=== PATIENT | male | born 1945 | race Caucasian/White ===

== ENCOUNTER 2023-03-26 12:17 | Emergency (ER) | payer MEDICARE, OTHER, SELFPAY ==
[2023-03-26 12:20] VITALS: BP 152/91; PULSE 74; RESP 18; TEMP 37; O2SAT 100; BMI 27.2
--- NOTE | 2023-03-26 12:32 | DI.RAD.S_ITS ---
PROCEDURE: XR HAND LT MIN 3V INDICATIONS: animal bite/laceration TECHNIQUE: 3 views of the hand(s) acquired. COMPARISON: None. FINDINGS: Bones: There is a bone fragment seen adjacent to the 3rd metacarpal head, measuring 11 mm. Advanced degenerative changes are seen, particularly involving the 1st carpometacarpal joint. Gull wing type deformity can be seen involving the proximal interphalangeal joints. Soft tissues: Soft tissue swelling with soft tissue gas can be seen involving the distal palm. No radiopaque foreign bodies are seen. IMPRESSION: Soft tissue injury with laceration. No radiopaque foreign bodies are seen. There is an 11 mm bone fragment seen adjacent to the 3rd metacarpal head, within on clear donor site. This may be related to acute fracture. - If clinically appropriate, please consider a follow-up hand CT for further evaluation. Underlying degenerative changes are seen. 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 Dictated by: Calderon Yan M.D. on 03/26/2023 at 12:05 Approved by: Calderon Yan M.D. on 03/26/2023 at 12:08
[2023-03-26] MEDS: TET,DIPH,PERTUSS(ACELL),VAC/PF 0.5 ML SYRINGE IM (12:56)
[2023-03-26] MEDS: LIDOCAINE 1% (PF) 5 ML INJ (13:53)
--- NOTE | 2023-03-26 14:01 | ED_ITS ---
HPI - Animal Bite <Vania Arriola PA-C - Last Filed: 03/26/23 19:16> General Chief Complaint: Animal Bite Stated Complaint: Animal Bite Time Seen by Provider: 03/26/23 12:40 Source: patient Mode of arrival: Ambulatory History of Present Illness HPI narrative: 77-year-old male with no chronic medical problems here today for a dog bite on his left hand. Occurred 1 hour [employer]. Patient was on a walk with his dog and met up with a friend who also had a dog. The dog's got into an altercation and the patient reached in between them to try to break up the fight and got bit. The friend's dog is known to the patient and it is fully immunized. Patient is unsure of his last tetanus shot. He came straight here and has not irrigated the wound or taken any medications. He is able to move his hand and denies any numbness or tingling. Related Data Previous Rx's Medication Instructions Recorded amoxicillin 875 mg-potassium 1 tab PO BID 10 days #20 tabs 03/26/23 clavulanate 125 mg tablet Allergies Allergy/AdvReac Type Severity Reaction Status Date / Time No Known Drug Allergies Allergy Verified 03/26/23 12:20 Review of Systems <Vania Arriola PA-C - Last Filed: 03/26/23 19:16> Review of Systems ROS Unobtainable: All systems reviewed & are unremarkable except as noted in HPI and below Patient History <Vania Arriola PA-C - Last Filed: 03/26/23 19:16> Social History Smoking Status: Never smoker Smoking Status: Never smoker Substance Use Type: does not use Exam <Vania Arriola PA-C - Last Filed: 03/26/23 19:16> Narrative Exam Narrative: GENERAL: Well-developed, well-nourished, appears stated age. In no acute distress HEAD: Atraumatic. Normocephalic. EYES: Pupils equal round and reactive. Extraocular motions intact. No scleral icterus. No injection or drainage. ENT: Nose without bleeding, purulent drainage. Airway patent. NECK: Trachea midline. Non tender RESPIRATORY: Respiratory rate and effort normal EXTREMITIES: No edema or joint tenderness. NEURO: AOx3. SKIN/L HAND: Left hand with 3 cm deep laceration between the 3rd and 2nd metacarpals, dorsal surface. Two small puncture wounds noticed on the palmar surface with minimal bleeding. The 3 cm laceration is linear and does not appear to involve the tendons. Full range of motion of hand, able to make full fist, full range of motion of all digits including flexion, extension, abduction and adduction. Normal strength and resistance to tension of the digits. Normal sensation and vascular exam. Initial Vital Signs Initial Vital Signs: Vital Signs Temperature 98.6 F 03/26/23 12:20 Pulse Rate 74 03/26/23 12:20 Respiratory Rate 18 03/26/23 12:20 Blood Pressure 152/91 H 03/26/23 12:20 Pulse Oximetry 100 03/26/23 12:20 Oxygen Delivery Method Room Air 03/26/23 12:20 <Yvonne Vargas DO - Last Filed: 03/27/23 07:24> Initial Vital Signs Initial Vital Signs: Vital Signs Temperature 98.6 F 03/26/23 12:20 Pulse Rate 74 03/26/23 12:20 Respiratory Rate 18 03/26/23 12:20 Blood Pressure 152/91 H 03/26/23 12:20 Pulse Oximetry 100 03/26/23 12:20 Oxygen Delivery Method Room Air 03/26/23 12:20 Procedures <PARMJIT Cordero Last Filed: 03/26/23 19:16> Laceration Repair Laceration 1: Time of procedure: 14:00 Site: hand (Left) Side (If applicable): left Size (cm): 3 Depth: involves muscle layer Local Anesthetic: lidocaine 1% Amount of anesthesia used (mL): 3 Pre-repair: wound explored and irrigated extensively (Used chlorhexidine and 2 full bottles of saline) Skin layer closed with: nylon Skin layer suture size: 4-0 Number of sutures: 3 Technique: simple, interrupted (Closed loosely due to high-risk of infection (dog bite)) Course <Vania Arriola PA-C - Last Filed: 03/26/23 19:16> Orders Ordered: Discontinued Medications Amoxicillin/Clavulanate Potassium (Amoxicillin/Clav 875/125 Mg) 1 tab PO NOW ONE Stop: 03/26/23 14:30 Last Admin: 03/26/23 15:00 Dose: 1 tab Documented By: SABA Diphtheria/Tetanus/Acell Pertussis (Tet,Diph,Pertuss(Acell),Vac/Pf 0.5 Ml Syringe) 0.5 ml IM .ONCE ONE Stop: 03/26/23 12:33 Last Admin: 03/26/23 12:56 Dose: 0.5 ml Documented By: SABA Lidocaine HCl (Lidocaine 1% (Pf) 5 Ml) 5 ml INJ NOW ONE Stop: 03/26/23 13:41 Last Admin: 03/26/23 13:53 Dose: 5 ml Documented By: SABA Vital Signs Vital signs: Vital Signs - 8 hr 03/26/23 12:20 03/26/23 14:20 03/26/23 15:20 Temperature 98.6 F Pulse Rate 74 62 Pulse Rate [Left Radial] 70 Respiratory Rate 18 20 Blood Pressure 152/91 H 120/66 Pulse Oximetry 100 97 Oxygen Delivery Method Room Air Room Air <Yvonne Vargas DO - Last Filed: 03/27/23 07:24> Orders Ordered: Discontinued Medications Amoxicillin/Clavulanate Potassium (Amoxicillin/Clav 875/125 Mg) 1 tab PO NOW ONE Stop: 03/26/23 14:30 Last Admin: 03/26/23 15:00 Dose: 1 tab Documented By: SABA Diphtheria/Tetanus/Acell Pertussis (Tet,Diph,Pertuss(Acell),Vac/Pf 0.5 Ml Syringe) 0.5 ml IM .ONCE ONE Stop: 03/26/23 12:33 Last Admin: 03/26/23 12:56 Dose: 0.5 ml Documented By: SABA Lidocaine HCl (Lidocaine 1% (Pf) 5 Ml) 5 ml INJ NOW ONE Stop: 03/26/23 13:41 Last Admin: 03/26/23 13:53 Dose: 5 ml Documented By: SABA Vital Signs Vital signs: Vital Signs - 8 hr 03/26/23 12:20 03/26/23 14:20 03/26/23 15:20 Temperature 98.6 F Pulse Rate 74 62 Pulse Rate [Left Radial] 70 Respiratory Rate 18 20 Blood Pressure 152/91 H 120/66 Pulse Oximetry 100 97 Oxygen Delivery Method Room Air Room Air MDM - Animal Bite <Vania Arriola PA-C - Last Filed: 03/26/23 19:16> Imaging Data Extremity x-ray #1: Radiologist's Impression: [address] [address] XRay Report Signed Patient: eRyes Mcclure MR#: [id number] : 1945 Acct:[id number] Age/Sex: 77 / M Date of Service: 03/26/23 Loc: ED Accession Number: [id number] Procedure: XR hand LT min 3V Ordering Provider: Yvonne Vargas D.O. PROCEDURE: XR HAND LT MIN 3V INDICATIONS: animal bite/laceration TECHNIQUE: 3 views of the hand(s) acquired. COMPARISON: None. FINDINGS: Bones: There is a bone fragment seen adjacent to the 3rd metacarpal head, measuring 11 mm. Advanced degenerative changes are seen, particularly involving the 1st carpometacarpal joint. Gull wing type deformity can be seen involving the proximal interphalangeal joints. Soft tissues: Soft tissue swelling with soft tissue gas can be seen involving the distal palm. No radiopaque foreign bodies are seen. IMPRESSION: Soft tissue injury with laceration. No radiopaque foreign bodies are seen. There is an 11 mm bone fragment seen adjacent to the 3rd metacarpal head, within on clear donor site. This may be related to acute fracture. - If clinically appropriate, please consider a follow-up hand CT for further evaluation. Underlying degenerative changes are seen. 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 Dictated by: Calderon Yan M.D. on 03/26/2023 at 12:05 Approved by: Calderon Yan M.D. on 03/26/2023 at 12:08 [facility] Narrative Medical decision making narrative: Patient seen for a dog bite to his left hand. He sustained a 3 cm deep laceration between the 3rd and 2nd metacarpals. Patient has full range of motion of the entire hand and all digits with no evidence of tendon injury and normal sensation and vascular exam as well. Discussed with Dr. Vargas who recommended 2-3 loose sutures and Augmentin. On x-ray there was an 11 mm bone fragment adjacent to the 3rd metacarpal head so ortho Dr. Fox was consulted. His recommendation was that no splint necessary since it is simply a bony fragment and no ortho follow up needed. He recommended encouraging range of motion and applying a soft bandage and follow up with PCP. Patient was given 1 dose of Augmentin here in the ED and will take the remaining 10 days at home. Patient is ring was cut off the affected hand today. Tetanus shot was given today. Patient given strict return precautions for signs of infection. Consultations: Ortho- Dr. Fox - see above Findings and discharge diagnosis discussed with patient/family followed by verbalization of understanding Return precautions discussed with patient/family whom verbalize understanding of diagnosis and plan Discharge Plan Departure Patient Disposition: Home Clinical Impression: Dog bite Qualifiers: Encounter type: initial encounter Qualified Code(s): W54.0XXA - Bitten by dog, initial encounter Open avulsion fracture of shaft of metacarpal bone Qualifiers: Encounter type: initial encounter Qualified Code(s): S62.329B - Displaced fracture of shaft of unspecified metacarpal bone, initial encounter for open fracture Instructions: DI for Dog Bite Activity Restrictions/Additional Instructions: You were seen today for a dog bite on your left hand. You are being prescribed antibiotics to take for 10 days due to the high risk of infection with dog bites. Please take as directed for the full 10 days. You have 3 stitches in your hand. These will need to be removed in 10 days. In the meantime, please wash the wound with soap and water gently twice daily. Pat dry and then bandage as directed. Please monitor very closely for signs of infection which include significant redness around the wound, swelling, pain, yellow or green drainage or pus from the wound, inability to flex/move your hand or fingers, and/or fevers. If these occur please return to the emergency department immediately. Please follow up with her primary care provider within the next 3-5 days to check the wound. Thank you for choosing us to care for you today. Prescriptions: New amoxicillin-pot clavulanate 875-125 mg tablet 1 tab PO BID 10 Days Qty: 20 0RF Referrals: Miscellaneous,Doctor, [Primary Care Provider] - Rafia Gu PA-C [Non-Staff] - 3-5 days (Pt sustained dog bite to L hand with no e/o nerve or tendon injury. 11mm bony fragment seen on X-ray. Ortho advised follow up with PCP, no ortho f/u needed. ) Stand Alone Forms: Patient Portal/API ED Sign-out <Yvonne Vargas DO - Last Filed: 03/27/23 07:24> Cosign ED Attending Cosignature Attestation: I was available for consultation. Did not evaluate patient myself but consulted with Vania symptoms. Recommended loose closure copious irrigation and antibiotics. Ensured no tendon injury, per her exam. And orthopedics follow-up
[2023-03-26 14:20] VITALS: PULSE 70
[2023-03-26] MEDS: AMOXICILLIN/CLAV 875/125 MG 1 TAB PO (15:00)
[2023-03-26 15:20] VITALS: BP 120/66; PULSE 62; RESP 20; O2SAT 97
== END 2023-03-26 15:32 | disposition home or self-care (01) ==
PROVIDERS: Emergency Provider Physician Assistant
DX: S62.303A Unspecified fracture of third metacarpal bone, left hand, initial encounter for closed fracture (principal); S61.452A Open bite of left hand, initial encounter; W54.0XXA Bitten by dog, initial encounter; Z23 Encounter for immunization
CPT/HCPCS: 12042; 73130; 90471; 99283; 99284; 90715

== ENCOUNTER 2023-03-27 14:49 | Emergency (ER) | payer MEDICARE, OTHER, SELFPAY ==
[2023-03-27] VITALS (20 sets, daily range): BP systolic 101–159; BP diastolic 53–77; PULSE 61–90; RESP 18; TEMP 36.4; O2SAT 96–99; BMI 27.2
--- NOTE | 2023-03-27 16:22 | ED_ITS ---
HPI - Skin/Abscess/Foreign Bdy General Chief complaint: Skin/Abscess/Foreign Body Stated complaint: hand swelling, sutures yesterday animal bite Time Seen by Provider: 03/27/23 15:15 Source: patient Mode of arrival: Ambulatory Limitations: no limitations History of Present Illness HPI narrative: Patient healthy 77-year-old male presents today for wound re-evaluation. He was bit by a dog yesterday on his left hand. He had large laceration on the dorsal side it was loosely closed and irrigated thoroughly yesterday. He is taken 2 doses of Augmentin. Today he notes that it is more swollen. It is mildly eryth ematous but he does not have any fever or chills. No streaking. He has decreased range of motion in his fingers today due to swelling but yesterday he had intact neurologic and tendon exam. Related Data Previous Rx's Medication Instructions Recorded amoxicillin 875 mg-potassium 1 tab PO BID 10 days #20 tabs 03/26/23 clavulanate 125 mg tablet Allergies Allergy/AdvReac Type Severity Reaction Status Date / Time No Known Drug Allergies Allergy Verified 03/27/23 14:58 Patient History Social History Smoking Status: Never smoker Smoking Status: Never smoker Substance Use Type: does not use Exam Initial Vital Signs Initial Vital Signs: Vital Signs Temperature 97.6 F 03/27/23 14:51 Pulse Rate 82 03/27/23 14:51 Respiratory Rate 18 03/27/23 14:51 Blood Pressure 145/77 H 03/27/23 14:51 Pulse Oximetry 98 03/27/23 14:51 Oxygen Delivery Method Room Air 03/27/23 14:51 GENERAL: Alert pleasant 77-year-old male CARDIOVASCULAR: peripheral pulses in tact, cap refill <2 sec RESPIRATORY: No respiratory distress, speaks in full sentences without difficulty EXTREMITIES: Normal range of motion, no clubbing or edema. Neurovascularly intact Left hand swelling distal radial pulse intact decreased range of motion due to swelling NEUROLOGICAL: Cranial nerves II through XII grossly intact. Normal gait and speech. SKIN: left dorsal hand sutures in place there is some good space between them slight serosanguineous fluid drainage no copious amounts. There is swelling with minimal erythema. There is no streaking. Course Vital Signs Vital signs: Vital Signs - 8 hr 03/27/23 14:51 03/27/23 15:08 03/27/23 15:08 Temperature 97.6 F Pulse Rate 82 86 Respiratory Rate 18 Blood Pressure 145/77 H 144/61 H Pulse Oximetry 98 99 Oxygen Delivery Method Room Air 03/27/23 15:15 03/27/23 15:15 03/27/23 15:30 Temperature Pulse Rate 74 89 Respiratory Rate Blood Pressure 159/67 H Pulse Oximetry 98 96 Oxygen Delivery Method 03/27/23 15:32 03/27/23 15:32 03/27/23 15:33 Temperature Pulse Rate 88 77 Respiratory Rate Blood Pressure 107/59 L Pulse Oximetry 96 98 Oxygen Delivery Method 03/27/23 15:33 03/27/23 15:35 03/27/23 15:35 Temperature Pulse Rate 83 Respiratory Rate Blood Pressure 108/59 L 115/61 Pulse Oximetry 98 Oxygen Delivery Method 03/27/23 15:40 03/27/23 15:40 03/27/23 15:46 Temperature Pulse Rate 87 88 Respiratory Rate Blood Pressure 109/57 L Pulse Oximetry 97 97 Oxygen Delivery Method 03/27/23 15:46 03/27/23 15:50 03/27/23 15:50 Temperature Pulse Rate 87 Respiratory Rate Blood Pressure 101/68 106/60 Pulse Oximetry 98 Oxygen Delivery Method 03/27/23 15:55 03/27/23 15:55 03/27/23 15:59 Temperature Pulse Rate 74 61 Respiratory Rate Blood Pressure 103/57 L Pulse Oximetry 98 98 Oxygen Delivery Method 03/27/23 15:59 03/27/23 16:00 03/27/23 16:00 Temperature Pulse Rate 88 Respiratory Rate Blood Pressure 118/66 103/57 L Pulse Oximetry 98 Oxygen Delivery Method 03/27/23 16:05 03/27/23 16:05 03/27/23 16:10 Temperature Pulse Rate 88 88 Respiratory Rate Blood Pressure 118/57 L Pulse Oximetry 98 97 Oxygen Delivery Method 03/27/23 16:10 03/27/23 16:15 03/27/23 16:15 Temperature Pulse Rate 82 Respiratory Rate Blood Pressure 116/56 L 114/59 L Pulse Oximetry 97 Oxygen Delivery Method 03/27/23 16:20 03/27/23 16:20 03/27/23 16:25 Temperature Pulse Rate 90 88 Respiratory Rate Blood Pressure 114/64 Pulse Oximetry 97 98 Oxygen Delivery Method 03/27/23 16:25 03/27/23 16:30 02/18/24 16:30 Temperature Pulse Rate 88 Respiratory Rate Blood Pressure 125/64 102/53 L Pulse Oximetry 98 Oxygen Delivery Method 03/27/23 16:35 03/27/23 16:35 Temperature Pulse Rate 87 Respiratory Rate Blood Pressure 104/57 L Pulse Oximetry 99 Oxygen Delivery Method MDM - Skin/Abscess/Foreign Bdy MDM Narrative Medical decision making narrative: Patient well-appearing 77-year-old male presents today for wound recheck and evaluation. At this time he has afebrile no signs of obvious or worsening infection. He does have swelling which is to be expected. He has some drainage from the wound not purulent in nature. He has only had 2 doses of antibiotics. At this time encourage continue antibiotics elevation and ice. Discussed warning signs and when to return to ED. He has not really having any pain. I suspect his decreased range of motion secondary to swelling rather than nerve or tendon injury. There is also no signs of flexor or extensor tenosynovitis at this time Discharge Plan Departure Patient Disposition: Home Clinical Impression: Dog bite Instructions: DI for Cellulitis -- Adult Activity Restrictions/Additional Instructions: *You have been diagnosed with dog *What to do: Continue elevating as often as possible ice 20-30 minutes at a time. Keep hand clean and dry with soap and water new bandage every 12-24 hours *Continue to take medications as directed Finish antibiotics as prescribed Motrin 600 mg every 6 hours if needed for [id number]-lr-tvdwnasp pain Tylenol 1000 mg every 6 hours if needed for vhig-lc-rdbytbin pain *Follow up with your primary care provider in 2-3 days or call [phone] *Return to ER if you should have increasing pain redness streaking up arm fever chills or any new, worsening or concerning symptoms Prescriptions: No Action amoxicillin-pot clavulanate 875-125 mg tablet 1 tab PO BID 10 Days Qty: 20 0RF Referrals: Miscellaneous,Doctor, [Primary Care Provider] - Stand Alone Forms: Patient Portal/API
== END 2023-03-27 16:41 | disposition home or self-care (01) ==
PROVIDERS: Emergency Provider Emergency Medicine
DX: S60.572A Other superficial bite of hand of left hand, initial encounter (principal); W54.0XXA Bitten by dog, initial encounter
CPT/HCPCS: 99281; 99282

== ENCOUNTER 2023-11-22 14:30 | Outpatient (RCR) | payer MEDICARE, OTHER, SELFPAY ==
--- NOTE | 2023-10-13 18:05 | PT.OIE ---
Current Diagnoses Impingement syndrome of right shoulder (10/13/23) Visit Care Team Role Provider Type Rafia Gu PA-C Family Provider Non-Staff Primary Care Provider Specialty: Medical Address: [address] [place] [address], [place], [address] Email: Keo Husain MD Attending Provider Non-Staff Referring Provider Specialty: Orthopedic Surgery Address: [address] [place] [address], [place], [address] Email: Physical Therapy Initial Evaluation PT-OP-A Visit Information Start: 10/06/23 18:02 Freq: Status: Active Protocol: Document 10/13/23 11:26 [facility] (Rec: 10/13/23 13:05 [facility] [id number]) Out-Patient Physical Therapy Visit Information Visit Information Visit Type Initial Evaluation Visit Note 02/16 Visit Start Time 11:25 Visit Stop Time 12:07 Visit Number 1 Number of GENERAL EDUCATION PROFESSOR Visits 0 PT-OP-B Current Condition Start: 10/06/23 18:02 Freq: Status: Active Protocol: Document 10/13/23 11:26 [facility] (Rec: 10/13/23 13:05 [facility] [id number]) Current Condition History of Current Condition Onset Date 8 months ago Current Complaints R shoulder points to UT region History of Current Condition Pt was coming out of and had dog's leash in hand and dog pulled hard and arm went across body fast and it hurt a lot. Still cannot throw ball for dog. pain w/overhead motions and throwing motions. Uses ice on it. Pt has a back problem and it is always there and as long as he is mindful, its okay. 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 Its a lot better since it happended but not getting any better. Hx of neck surgery also but denies pain Treatment Goals Patient/Caregiver Goals be able throw ball for dog, do overhead activities, be able to returnt o work out (wall push ups) PT-OP-C Subjective Start: 10/06/23 18:02 Freq: Status: Active Protocol: Document 10/13/23 11:26 [facility] (Rec: 10/13/23 13:05 [facility] [id number]) Patient Questionnaires Quick Dash- Upper Extremity Quick Dash UE Score 18.18 OP-PT Pain Assessment Location R shoulder Pain Location Details R UT region/1st rib area Description Aching,With Movement Frequency Constant Pain Aggravating Factors Lifting Other Pain Aggravating Factors throwing ball, overhead activities, sleep on R sdie Pain Alleviating Factors Cold,Medication PT-OP-F Manual Assessment Start: 10/06/23 18:02 Freq: Status: Active Protocol: Document 10/13/23 11:26 [facility] (Rec: 10/13/23 13:05 [facility] [id number]) Manual Assessments Soft Tissue Assessment Soft Tissue Mobility Assessment tenderenss to biceps tendon, post scalene Joint Mobility Assessment Joint Mobility Assessment w/overhead motion elevation of scap PT-OP-J Posture/Palpation/Skin Start: 10/06/23 18:02 Freq: Status: Active Protocol: Document 10/13/23 11:26 [facility] (Rec: 10/13/23 13:05 [facility] [id number]) Posture Evaluation Nyla Postural Classification System Nyla Postural Classifications Posterior/Anterior Elbow Flexion Test 0 Comments Posture Comments R scap ant tipped, abd; humerus ant in glenoid R>L; R 1st rib elevated PT-OP-K Range of Motion Start: 10/06/23 18:02 Freq: Status: Active Protocol: Document 10/13/23 11:26 [facility] (Rec: 10/13/23 13:05 [facility] [id number]) Shoulder Goniometric Range of Motion Shoulder Right Active Flexion 126 Extension 38 Abduction 120 External Rotation at 90 degrees 45 Abduction External Rotation at 0 degrees Abduction 9 Internal Rotation Behind Back (text) L4 Comments pain w/all Left Active Flexion 152 Extension 75 Abduction 159 External Rotation at 90 degrees 79 Abduction External Rotation at 0 degrees Abduction 60 Internal Rotation Behind Back (text) T9 PT-OP-L Special Tests Start: 10/06/23 18:02 Freq: Status: Active Protocol: Document 10/13/23 11:26 [facility] (Rec: 10/13/23 13:05 [facility] [id number]) Special Tests Shoulder Special Tests Speed's Biceps Test Results neg R [place] Test Test Results positive R AC Joint Compression Test Results neg R Sulcus Test Results neg R Empty Can Comments positive R Neer Impingement Comments positive R Ku Adam Impingement Comments positive R PT-OP-M Strength Start: 10/06/23 18:02 Freq: Status: Active Protocol: Document 10/13/23 11:26 [facility] (Rec: 10/13/23 13:05 [facility] [id number]) Shoulder Strength Shoulder Manual Muscle Testing Right Flexion 4- Good- Extension 4- Good- Abduction (C5) 3+ Fair+ External Rotation 3+ Fair+ Internal Rotation 4 Good Horizontal Abduction 3+ Fair+ Horizontal Adduction 3+ Fair+ Comments painful Left Flexion 5 Normal Extension 5 Normal Abduction (C5) 5 Normal Adduction 5 Normal External Rotation 5 Normal Internal Rotation 5 Normal Horizontal Abduction 5 Normal Horizontal Adduction 5 Normal Elbow/Forearm Strength Elbow and Forearm Manual Muscle Testing Right Flexion (C6) 5 Normal Extension (C7) 5 Normal Left Flexion (C6) 5 Normal Extension (C7) 5 Normal PT-OP-Q Treatments Start: 10/06/23 18:02 Freq: Status: Active Protocol: Document 10/13/23 11:26 [facility] (Rec: 10/13/23 13:05 [facility] [id number]) Therapeutic Exercises Sitting Exercises cervical Sitting Exercise Name 1. AROM rot 2. SB holds Side bilateral Reps/Minutes 1.8 2. 10 sec x2 Standing Exercises flex Standing Exercise Name AAROM w/cane Side bilateral Reps/Minutes 6 Comments cues no scap elevation ext Standing Exercise Name AAROm w/cane Side bilateral Reps/Minutes 6 Self-Care/Home Management Treatment Education Other Education 15 min: discussion what is impingment is and how biceps and RC appear irritated after the injury w/likely inflamation in R shoulder;edu to ice after session; edu how neck may be involved and w/1st rib based on pain location. Edu re: anatomy and shoulder jt mechancis. PT-OP-T Assessment and Plan Start: 10/06/23 18:02 Freq: Status: Active Protocol: Document 10/13/23 11:26 [facility] (Rec: 10/13/23 13:05 [facility] [id number]) Physical Therapy Assessment Rehab Potential Rehabilitation Potential Good Evaluation Complexity Number of Personal Factors/Comorbidities 3 or More Number of Body Systems Impaired 4 or More Clinical Presentation at Evaluation Stable Impairments Impairments Activity Tolerance,Functional Activities,Functional Mobility ,Pain,Posture,ROM,Soft Tissue Mobility,Strength Goals activities Short Term Goal (STG) Pt will report ability to reach overhead w/o inc pain STG Duration 11/07 Longterm Goal (LTG) Pt will be able to do all activities including throwing ball for dog w/o inc pain in R shoulder LTG Duration 12/22/23 strength Short Term Goal (STG) Pt will be indep w/HEP STG Duration 11/09 Notching Machine Operator Goal (LTG) Pt will score at least 4+/5 on all RUE MMT and at least 4/5 EFT to show improved stability in order to do normal daily activities w/o inc pain. LTG Duration 12/21 ROM Longterm Goal (LTG) Pt will have full R shoulder AROM w/o inc pain to allow all typical activities w/o shoulder pain. LTG Duration 12/21 Assessment Summary Assessment pt presents w/R shoulder pain at ACJ region/1st rib mostly w /some ant shoulder pain mostly w/overhead activtiies after pt arm pulled fast across body by dog when holding leash. Pt cont to have pain 8 months later that prevents him from doing overhead activtiies and is unable to do overhand throw for dog. He does have hx of cervical sx but pt unsure what was done and does have elevated 1st rib along w/ positive for impingement testing w/more mechanics of scapulohumeral rhythm when raising arm overhead likely contributing to this. Pt would benefit from skilled PT to address these issues. Physical Therapy Plan Frequency and Duration Frequency of Treatment 2x/Week Duration of treatment (weeks) 10 Plan of Care Start Date 10/13/23 Plan of Care End Date 12/22/23 Therapeutic Interventions Therapeutic Interventions Home Exercise Program,Joint Mobilizations,Manual Therapy, Neuromuscular Re-education, Patient/Caregiver Education, Self-Care/Home Management,Soft Tissue Mobilization,Taping, Therapeutic Activities, Therapeutic Exercises Modalities Cold Pack/Ice Massage,Electric Stimulation,Hot Packs, Infrared Therapy,Ultrasound Next Visit Focus/Plan Next Note Type Treatment Note Next Visit Plan review HEP; start gentle strength or further AAROM if pt able manual: AC, SC, rib, thoracic mobs to GH; STM to scalenes, SCM, UT, LS, pec, biceps
--- NOTE | 2023-10-13 18:05 | PT.OPPOC ---
Physical, Occupational & Speech Therapy At [facility] Current Diagnoses Impingement syndrome of right shoulder (10/13/23) Visit Care Team Role Provider Type Rafia Gu PA-C Family Provider Non-Staff Primary Care Provider Specialty: Medical Address: [address] [facility], [place], [address] Email: Keo Husain MD Attending Provider Non-Staff Referring Provider Specialty: Orthopedic Surgery Address: [address] [place] [address], [place], [address] Email: Plan Of Care PT-OP-B Current Condition Start: 10/06/23 18:02 Freq: Status: Active Protocol: Document 10/13/23 11:26 [facility] (Rec: 10/13/23 13:05 [facility] [id number]) Current Condition History of Current Condition Onset Date 8 months ago Current Complaints R shoulder points to UT region History of Current Condition Pt was coming out of and had dog's leash in hand and dog pulled hard and arm went across body fast and it hurt a lot. Still cannot throw ball for dog. pain w/overhead motions and throwing motions. Uses ice on it. Pt has a back problem and it is always there and as long as he is mindful, its okay. 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 Its a lot better since it happended but not getting any better. Hx of neck surgery also but denies pain Treatment Goals Patient/Caregiver Goals be able throw ball for dog, do overhead activities, be able to returnt o work out (wall push ups) PT-OP-T Assessment and Plan Start: 10/06/23 18:02 Freq: Status: Active Protocol: Document 10/13/23 11:26 [facility] (Rec: 10/13/23 13:05 [facility] [id number]) Physical Therapy Assessment Rehab Potential Rehabilitation Potential Good Evaluation Complexity Number of Personal Factors/Comorbidities 3 or More Number of Body Systems Impaired 4 or More Clinical Presentation at Evaluation Stable Impairments Impairments Activity Tolerance,Functional Activities,Functional Mobility ,Pain,Posture,ROM,Soft Tissue Mobility,Strength Goals activities Short Term Goal (STG) Pt will report ability to reach overhead w/o inc pain STG Duration 11/07 Longterm Goal (LTG) Pt will be able to do all activities including throwing ball for dog w/o inc pain in R shoulder LTG Duration 12/22/23 strength Short Term Goal (STG) Pt will be indep w/HEP STG Duration 11/09 Fermenter Wine Goal (LTG) Pt will score at least 4+/5 on all RUE MMT and at least 4/5 EFT to show improved stability in order to do normal daily activities w/o inc pain. LTG Duration 12/21 ROM Longterm Goal (LTG) Pt will have full R shoulder AROM w/o inc pain to allow all typical activities w/o shoulder pain. LTG Duration 12/21 Assessment Summary Assessment pt presents w/R shoulder pain at ACJ region/1st rib mostly w /some ant shoulder pain mostly w/overhead activtiies after pt arm pulled fast across body by dog when holding leash. Pt cont to have pain 8 months later that prevents him from doing overhead activtiies and is unable to do overhand throw for dog. He does have hx of cervical sx but pt unsure what was done and does have elevated 1st rib along w/ positive for impingement testing w/more mechanics of scapulohumeral rhythm when raising arm overhead likely contributing to this. Pt would benefit from skilled PT to address these issues. Physical Therapy Plan Frequency and Duration Frequency of Treatment 2x/Week Duration of treatment (weeks) 10 Plan of Care Start Date 10/13/23 Plan of Care End Date 12/22/23 Therapeutic Interventions Therapeutic Interventions Home Exercise Program,Joint Mobilizations,Manual Therapy, Neuromuscular Re-education, Patient/Caregiver Education, Self-Care/Home Management,Soft Tissue Mobilization,Taping, Therapeutic Activities, Therapeutic Exercises Modalities Cold Pack/Ice Massage,Electric Stimulation,Hot Packs, Infrared Therapy,Ultrasound Next Visit Focus/Plan Next Note Type Treatment Note Next Visit Plan review HEP; start gentle strength or further AAROM if pt able manual: AC, SC, rib, thoracic mobs to GH; STM to scalenes, SCM, UT, LS, pec, biceps Plan of Care Dates Plan of Care Start Date 10/13/23 Plan of Care End Date 12/22/23 Electronically Signed by: Shirley Prieto, PT 10/13/23 1800 If you are in agreement with this Plan of Care, please return a signed and dated copy. I have reviewed this Plan of Care and certify that the skilled therapy services above are required to meet the patient?s needs. Physician Signature Date Printed Name and Credentials Clinical Instructor Signature Printed Name and Credentials
--- NOTE | 2023-10-17 12:20 | PT.OTN ---
Current Diagnoses Impingement syndrome of right shoulder (10/17/23) Physical Therapy Treatment Note PT-OP-A Visit Information Start: 10/06/23 18:02 Freq: Status: Active Protocol: Document 10/17/23 10:53 [facility] (Rec: 10/17/23 12:20 [facility] [id number]) Out-Patient Physical Therapy Visit Information Visit Information Visit Type Treatment Note Visit Note 03/19 Visit Start Time 11:22 Visit Stop Time 12:00 Visit Number 2 Number of AUTOMOTIVE SALES EXECUTIVE Visits 0 PT-OP-B Current Condition Start: 10/06/23 18:02 Freq: Status: Active Protocol: Document 10/13/23 11:26 [facility] (Rec: 10/13/23 13:05 [facility] [id number]) Current Condition History of Current Condition Onset Date 8 months ago Current Complaints R shoulder points to UT region History of Current Condition Pt was coming out of and had dog's leash in hand and dog pulled hard and arm went across body fast and it hurt a lot. Still cannot throw ball for dog. pain w/overhead motions and throwing motions. Uses ice on it. Pt has a back problem and it is always there and as long as he is mindful, its okay. 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 Its a lot better since it happended but not getting any better. Hx of neck surgery also but denies pain Treatment Goals Patient/Caregiver Goals be able throw ball for dog, do overhead activities, be able to returnt o work out (wall push ups) PT-OP-C Subjective Start: 10/06/23 18:02 Freq: Status: Active Protocol: Document 10/17/23 10:53 [facility] (Rec: 10/17/23 12:20 [facility] [id number]) OP-PT Subjective Patient Comments Patient Comments Pt reports he stopped taking tylenol and using biofreeze which does help. notes stomach upset better since stopped tylenol PT-OP-F Manual Assessment Start: 10/06/23 18:02 Freq: Status: Active Protocol: Document 10/13/23 11:26 [facility] (Rec: 10/13/23 13:05 [facility] [id number]) Manual Assessments Soft Tissue Assessment Soft Tissue Mobility Assessment tenderenss to biceps tendon, post scalene Joint Mobility Assessment Joint Mobility Assessment w/overhead motion elevation of scap PT-OP-J Posture/Palpation/Skin Start: 10/06/23 18:02 Freq: Status: Active Protocol: Document 10/13/23 11:26 [facility] (Rec: 10/13/23 13:05 [facility] [id number]) Posture Evaluation [facility] Postural Classification System Nyla Postural Classifications Posterior/Anterior Elbow Flexion Test 0 Comments Posture Comments R scap ant tipped, abd; humerus ant in glenoid R>L; R 1st rib elevated PT-OP-K Range of Motion Start: 10/06/23 18:02 Freq: Status: Active Protocol: Document 10/13/23 11:26 [facility] (Rec: 10/13/23 13:05 [facility] [id number]) Shoulder Goniometric Range of Motion Shoulder Right Active Flexion 126 Extension 38 Abduction 120 External Rotation at 90 degrees 45 Abduction External Rotation at 0 degrees Abduction 9 Internal Rotation Behind Back (text) L4 Comments pain w/all Left Active Flexion 152 Extension 75 Abduction 159 External Rotation at 90 degrees 79 Abduction External Rotation at 0 degrees Abduction 60 Internal Rotation Behind Back (text) T9 PT-OP-L Special Tests Start: 10/06/23 18:02 Freq: Status: Active Protocol: Document 10/13/23 11:26 [facility] (Rec: 10/13/23 13:05 [facility] [id number]) Special Tests Shoulder Special Tests Speed's Biceps Test Results neg R [place] Test Test Results positive R AC Joint Compression Test Results neg R Sulcus Test Results neg R Empty Can Comments positive R Rositaer Impingement Comments positive R [place] Impingement Comments positive R PT-OP-M Strength Start: 10/06/23 18:02 Freq: Status: Active Protocol: Document 10/13/23 11:26 [facility] (Rec: 10/13/23 13:05 [facility] [id number]) Shoulder Strength Shoulder Manual Muscle Testing Right Flexion 4- Good- Extension 4- Good- Abduction (C5) 3+ Fair+ External Rotation 3+ Fair+ Internal Rotation 4 Good Horizontal Abduction 3+ Fair+ Horizontal Adduction 3+ Fair+ Comments painful Left Flexion 5 Normal Extension 5 Normal Abduction (C5) 5 Normal Adduction 5 Normal External Rotation 5 Normal Internal Rotation 5 Normal Horizontal Abduction 5 Normal Horizontal Adduction 5 Normal Elbow/Forearm Strength Elbow and Forearm Manual Muscle Testing Right Flexion (C6) 5 Normal Extension (C7) 5 Normal Left Flexion (C6) 5 Normal Extension (C7) 5 Normal PT-OP-Q Treatments Start: 10/06/23 18:02 Freq: Status: Active Protocol: Document 10/17/23 10:53 [facility] (Rec: 10/17/23 12:20 [facility] [id number]) Therapeutic Exercises Sitting Exercises cervical Sitting Exercise Name 1. AROM rot 2. SB holds Side bilateral Reps/Minutes 1.8 2. 10 sec x2 Standing Exercises Habd Standing Exercise Name along bar w/sidestep Side bilateral Equipment Used L1 Reps/Minutes 10ft ea ER Standing Exercise Name Double arm Side bilateral Equipment Used L1 Reps/Minutes 12 Comments cues elbows in IR Side right Resistance L1 Reps/Minutes 20 Comments cues no scap protraction row Side bilateral Equipment Used ione band Reps/Minutes 15 Comments cues scap retraction flex Standing Exercise Name AAROM w/cane Side bilateral Reps/Minutes 10 Comments cues no scap elevation ext Standing Exercise Name AAROm w/cane Side bilateral Reps/Minutes 10 Manual Therapy Treatment Consent Patient gave verbal consent for manual Yes treatment Soft Tissue Mobilization superior Body Location R UT, LS, scalenes Mobilization Type Rolling Intensity/Depth Moderate Body Position supine and s/l pec Body Location R Mobilization Type Rolling Intensity/Depth Moderate Body Position Supine Joint Mobilizations SC Joint distraction and sup FM Body Position Sidelying AC Comments ant clavicle FM s/l thoracic Body Position Supine Comments transverse T1 L FM ribs Comments AP rib 3 FM PA rib 1 FM caudal ribs 1-3 s/l fm PT-OP-T Assessment and Plan Start: 10/06/23 18:02 Freq: Status: Active Protocol: Document 10/17/23 10:53 [facility] (Rec: 10/17/23 12:20 [facility] [id number]) Physical Therapy Assessment Goals activities Short Term Goal (STG) Pt will report ability to reach overhead w/o inc pain STG Duration 11/07 Custodial Goal (LTG) Pt will be able to do all activities including throwing ball for dog w/o inc pain in R shoulder LTG Duration 12/22/23 strength Short Term Goal (STG) Pt will be indep w/HEP STG Duration 11/09 Cartridge Feeder Goal (LTG) Pt will score at least 4+/5 on all RUE MMT and at least 4/5 EFT to show improved stability in order to do normal daily activities w/o inc pain. LTG Duration 12/21 ROM Custodial Goal (LTG) Pt will have full R shoulder AROM w/o inc pain to allow all typical activities w/o shoulder pain. LTG Duration 12/21 Assessment Summary Assessment Pt reports improvement after session and was able to do overhead motion and ext w/less pain. reports feeling looser. Cues required for form and isolating movmeent w/all exercises and cues to slow down. Physical Therapy Plan Frequency and Duration Frequency of Treatment 2x/Week Duration of treatment (weeks) 10 Plan of Care Start Date 10/13/23 Plan of Care End Date 12/22/23 Next Visit Focus/Plan Next Note Type Treatment Note Next Visit Plan review HEP and advance strength as able manual: AC, SC, rib, thoracic mobs to GH; STM to scalenes, SCM, UT, LS, pec, biceps
--- NOTE | 2023-10-20 11:16 | PT.OTN ---
Current Diagnoses Impingement syndrome of right shoulder (10/20/23) Physical Therapy Treatment Note PT-OP-A Visit Information Start: 10/06/23 18:02 Freq: Status: Active Protocol: Document 10/20/23 10:33 SP (Rec: 10/20/23 11:18 SP [id number]) Out-Patient Physical Therapy Visit Information Visit Information Visit Type Treatment Note Visit Note 04/16 Visit Start Time 10:33 Visit Stop Time 11:16 Visit Number 3 Number of SLAB TRIPPER Visits 1 PT-OP-B Current Condition Start: 10/06/23 18:02 Freq: Status: Active Protocol: Document 10/13/23 11:26 [facility] (Rec: 10/13/23 13:05 [facility] [id number]) Current Condition History of Current Condition Onset Date 8 months ago Current Complaints R shoulder points to UT region History of Current Condition Pt was coming out of and had dog's leash in hand and dog pulled hard and arm went across body fast and it hurt a lot. Still cannot throw ball for dog. pain w/overhead motions and throwing motions. Uses ice on it. Pt has a back problem and it is always there and as long as he is mindful, its okay. 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 Its a lot better since it happended but not getting any better. Hx of neck surgery also but denies pain Treatment Goals Patient/Caregiver Goals be able throw ball for dog, do overhead activities, be able to returnt o work out (wall push ups) PT-OP-C Subjective Start: 10/06/23 18:02 Freq: Status: Active Protocol: Document 10/20/23 10:33 SP (Rec: 10/20/23 11:18 SP [id number]) OP-PT Subjective Patient Comments Patient Comments Pt reports compliant with HEP and initially R shld little sore reaching OH HEP but feels good now and good strengthening effort progression. PT-OP-F Manual Assessment Start: 10/06/23 18:02 Freq: Status: Active Protocol: Document 10/13/23 11:26 [facility] (Rec: 10/13/23 13:05 [facility] [id number]) Manual Assessments Soft Tissue Assessment Soft Tissue Mobility Assessment tenderenss to biceps tendon, post scalene Joint Mobility Assessment Joint Mobility Assessment w/overhead motion elevation of scap PT-OP-J Posture/Palpation/Skin Start: 10/06/23 18:02 Freq: Status: Active Protocol: Document 10/13/23 11:26 [facility] (Rec: 10/13/23 13:05 [facility] [id number]) Posture Evaluation [facility] Postural Classification System [place] Postural Classifications Posterior/Anterior Elbow Flexion Test 0 Comments Posture Comments R scap ant tipped, abd; humerus ant in glenoid R>L; R 1st rib elevated PT-OP-K Range of Motion Start: 10/06/23 18:02 Freq: Status: Active Protocol: Document 10/13/23 11:26 [facility] (Rec: 10/13/23 13:05 [facility] [id number]) Shoulder Goniometric Range of Motion Shoulder Right Active Flexion 126 Extension 38 Abduction 120 External Rotation at 90 degrees 45 Abduction External Rotation at 0 degrees Abduction 9 Internal Rotation Behind Back (text) L4 Comments pain w/all Left Active Flexion 152 Extension 75 Abduction 159 External Rotation at 90 degrees 79 Abduction External Rotation at 0 degrees Abduction 60 Internal Rotation Behind Back (text) T9 PT-OP-L Special Tests Start: 10/06/23 18:02 Freq: Status: Active Protocol: Document 10/13/23 11:26 [facility] (Rec: 10/13/23 13:05 [facility] [id number]) Special Tests Shoulder Special Tests Speed's Biceps Test Results neg R [place] Test Test Results positive R AC Joint Compression Test Results neg R Sulcus Test Results neg R Empty Can Comments positive R Neer Impingement Comments positive R [place] Impingement Comments positive R PT-OP-M Strength Start: 10/06/23 18:02 Freq: Status: Active Protocol: Document 10/13/23 11:26 [facility] (Rec: 10/13/23 13:05 [facility] [id number]) Shoulder Strength Shoulder Manual Muscle Testing Right Flexion 4- Good- Extension 4- Good- Abduction (C5) 3+ Fair+ External Rotation 3+ Fair+ Internal Rotation 4 Good Horizontal Abduction 3+ Fair+ Horizontal Adduction 3+ Fair+ Comments painful Left Flexion 5 Normal Extension 5 Normal Abduction (C5) 5 Normal Adduction 5 Normal External Rotation 5 Normal Internal Rotation 5 Normal Horizontal Abduction 5 Normal Horizontal Adduction 5 Normal Elbow/Forearm Strength Elbow and Forearm Manual Muscle Testing Right Flexion (C6) 5 Normal Extension (C7) 5 Normal Left Flexion (C6) 5 Normal Extension (C7) 5 Normal PT-OP-Q Treatments Start: 10/06/23 18:02 Freq: Status: Active Protocol: Document 10/20/23 10:33 SP (Rec: 10/20/23 11:18 SP [id number]) Therapeutic Exercises Sidelying Exercises Shld trio Sidelying Exercise Name abd, FF, HABD Side right Reps/Minutes 5 reps each post manual Comments painfree, cued slower pacing for fluid scapular glide- ROM WNL Standing Exercises Ys off wall Standing Exercise Name touch down<>Ys off wall- trialed inPT Side bilateral Resistance AROM Reps/Minutes x10 Comments cued closer to wall, cued CLEANER INDUSTRIAL no LB arch /c TA draw in Habd Standing Exercise Name free standing Side bilateral Equipment Used L1 Tb-anchored elbow height Reps/Minutes 10ft ea Comments good UT, supraspinatus Infra sp tiring - no pain ER Standing Exercise Name single arm Side bilateral Equipment Used L1 Reps/Minutes 12 Comments cues elbow in at side IR Side right Resistance L3>2>1 Reps/Minutes 20 Comments cues no scap protraction row Side bilateral Equipment Used [place] band Reps/Minutes 15 Comments cues scap retraction flex Standing Exercise Name AAROM w/cane> AROM Side bilateral Reps/Minutes 10 Comments cues no scap elevation, CLEANER INDUSTRIAL, scap retaction neutral ext Standing Exercise Name AROM Side bilateral Equipment Used wand behind back vs AROM Reps/Minutes 10 Comments cued elongated CLEANER INDUSTRIAL Manual Therapy Treatment Soft Tissue Mobilization superior Body Location R UT, LS, scalenes Mobilization Type Rolling Intensity/Depth Moderate Body Position supine and L s/l pec Body Location R Mobilization Type Rolling Intensity/Depth Moderate Body Position L SL Joint Mobilizations R scapulothoracic Direction retraction/depression Grade II Body Position L SL PT-OP-T Assessment and Plan Start: 10/06/23 18:02 Freq: Status: Active Protocol: Document 10/20/23 10:33 SP (Rec: 10/20/23 11:18 SP [id number]) Physical Therapy Assessment Goals activities Short Term Goal (STG) Pt will report ability to reach overhead w/o inc pain STG Duration 11/07 Assisted Goal (LTG) Pt will be able to do all activities including throwing ball for dog w/o inc pain in R shoulder LTG Duration 12/22/23 strength Short Term Goal (STG) Pt will be indep w/HEP STG Duration 11/09 Assisted Goal (LTG) Pt will score at least 4+/5 on all RUE MMT and at least 4/5 EFT to show improved stability in order to do normal daily activities w/o inc pain. LTG Duration 12/21 ROM Assisted Goal (LTG) Pt will have full R shoulder AROM w/o inc pain to allow all typical activities w/o shoulder pain. LTG Duration 12/21 Assessment Summary Assessment Pt improved R shld AROM today at arrival reaching FF over head withless tension in neck and top shoulder reported. DC use cane for FF HEP. Initiated Ys off wall after SL and resisted therex for posture and scapular inferior glide to support proper form reaching [place], with no adverse affects. Cues for scapular set stabilization during resisted HEP to decreased pec and UT recruitment. Pt tolerated increased resistance during rows, cues for slower eccentric return control. Cues as needed for neutral lumbar spine and elonated posture during shld ext and Ys off wall to allow proper form and not causing strain LS compensations. Physical Therapy Plan Frequency and Duration Frequency of Treatment 2x/Week Duration of treatment (weeks) 10 Plan of Care Start Date 10/13/23 Plan of Care End Date 12/22/23 Therapeutic Interventions Therapeutic Interventions Home Exercise Program,Joint Mobilizations,Manual Therapy, Neuromuscular Re-education, Patient/Caregiver Education, Self-Care/Home Management,Soft Tissue Mobilization,Taping, Therapeutic Activities, Therapeutic Exercises Modalities Cold Pack/Ice Massage,Electric Stimulation,Hot Packs, Infrared Therapy,Ultrasound Next Visit Focus/Plan Next Note Type Treatment Note Next Visit Plan Review HEP TB and Ys off wall and advance strength as able, consider over tball. manual: AC, SC, rib, thoracic mobs to GH; STM to scalenes, SCM, UT, LS, pec, biceps
--- NOTE | 2023-10-24 10:34 | PT.OTN ---
Current Diagnoses Impingement syndrome of right shoulder (10/24/23) Physical Therapy Treatment Note PT-OP-A Visit Information Start: 10/06/23 18:02 Freq: Status: Active Protocol: Document 10/24/23 09:50 SP (Rec: 10/24/23 10:36 SP [id number]) Out-Patient Physical Therapy Visit Information Visit Information Visit Type Treatment Note Visit Note 05/17 Visit Start Time 09:50 Visit Stop Time 10:34 Visit Number 4 Number of LETTERER Visits 2 PT-OP-B Current Condition Start: 10/06/23 18:02 Freq: Status: Active Protocol: Document 10/13/23 11:26 [facility] (Rec: 10/13/23 13:05 [facility] [id number]) Current Condition History of Current Condition Onset Date 8 months ago Current Complaints R shoulder points to [place] region History of Current Condition Pt was coming out of and had dog's leash in hand and dog pulled hard and arm went across body fast and it hurt a lot. Still cannot throw ball for dog. pain w/overhead motions and throwing motions. Uses ice on it. Pt has a back problem and it is always there and as long as he is mindful, its okay. 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 Its a lot better since it happended but not getting any better. Hx of neck surgery also but denies pain Treatment Goals Patient/Caregiver Goals be able throw ball for dog, do overhead activities, be able to returnt o work out (wall push ups) PT-OP-C Subjective Start: 10/06/23 18:02 Freq: Status: Active Protocol: Document 10/24/23 09:50 SP (Rec: 10/24/23 10:36 SP [id number]) OP-PT Subjective Patient Comments Patient Comments Pt report felt pretty good after last tx, no adverse affects. Compliant with HEP, but [place] band broke and hoping can get replacement for home. PT-OP-F Manual Assessment Start: 10/06/23 18:02 Freq: Status: Active Protocol: Document 10/13/23 11:26 [facility] (Rec: 10/13/23 13:05 [facility] [id number]) Manual Assessments Soft Tissue Assessment Soft Tissue Mobility Assessment tenderenss to biceps tendon, post scalene Joint Mobility Assessment Joint Mobility Assessment w/overhead motion elevation of scap PT-OP-J Posture/Palpation/Skin Start: 10/06/23 18:02 Freq: Status: Active Protocol: Document 10/13/23 11:26 [facility] (Rec: 10/13/23 13:05 [facility] [id number]) Posture Evaluation [facility] Postural Classification System [facility] Postural Classifications Posterior/Anterior Elbow Flexion Test 0 Comments Posture Comments R scap ant tipped, abd; humerus ant in glenoid R>L; R 1st rib elevated PT-OP-K Range of Motion Start: 10/06/23 18:02 Freq: Status: Active Protocol: Document 10/13/23 11:26 [facility] (Rec: 10/13/23 13:05 [facility] [id number]) Shoulder Goniometric Range of Motion Shoulder Right Active Flexion 126 Extension 38 Abduction 120 External Rotation at 90 degrees 45 Abduction External Rotation at 0 degrees Abduction 9 Internal Rotation Behind Back (text) L4 Comments pain w/all Left Active Flexion 152 Extension 75 Abduction 159 External Rotation at 90 degrees 79 Abduction External Rotation at 0 degrees Abduction 60 Internal Rotation Behind Back (text) T9 PT-OP-L Special Tests Start: 10/06/23 18:02 Freq: Status: Active Protocol: Document 10/13/23 11:26 [facility] (Rec: 10/13/23 13:05 [facility] [id number]) Special Tests Shoulder Special Tests Speed's Biceps Test Results neg R [place] Test Test Results positive R AC Joint Compression Test Results neg R Sulcus Test Results neg R Empty Can Comments positive R Neer Impingement Comments positive R [place] Impingement Comments positive R PT-OP-M Strength Start: 10/06/23 18:02 Freq: Status: Active Protocol: Document 10/13/23 11:26 [facility] (Rec: 10/13/23 13:05 [facility] [id number]) Shoulder Strength Shoulder Manual Muscle Testing Right Flexion 4- Good- Extension 4- Good- Abduction (C5) 3+ Fair+ External Rotation 3+ Fair+ Internal Rotation 4 Good Horizontal Abduction 3+ Fair+ Horizontal Adduction 3+ Fair+ Comments painful Left Flexion 5 Normal Extension 5 Normal Abduction (C5) 5 Normal Adduction 5 Normal External Rotation 5 Normal Internal Rotation 5 Normal Horizontal Abduction 5 Normal Horizontal Adduction 5 Normal Elbow/Forearm Strength Elbow and Forearm Manual Muscle Testing Right Flexion (C6) 5 Normal Extension (C7) 5 Normal Left Flexion (C6) 5 Normal Extension (C7) 5 Normal PT-OP-Q Treatments Start: 10/06/23 18:02 Freq: Status: Active Protocol: Document 10/24/23 09:50 SP (Rec: 10/24/23 10:36 SP [id number]) Therapeutic Exercises Standing Exercises D2 flexion Standing Exercise Name trialed in PT Side right Resistance AROm fine, 1# DB Equipment Used front mirror Reps/Minutes x5 reps total Ys off wall Standing Exercise Name Ys off wall- added to HEP /c HO Side bilateral Resistance AROM Reps/Minutes x10 (instructed 5x2 home 3x/wk ) Comments cued closer to wall, cued WIND TECHNICIAN no LB arch /c TA draw in, face near wall ER Standing Exercise Name single arm- HEP reviewed /c HO Side bilateral Resistance L1>2 teal Equipment Used towel under arm Reps/Minutes 2x12 Comments cues elbow in at side, humeral rotation IR Standing Exercise Name single arm HEP review Side right Resistance L3 [place] Equipment Used towel under arm Reps/Minutes 20 Comments cues set scap back, humeral rotation touch belly, impr form- no protraction row Standing Exercise Name HEP reviewed (improved no leaning back split stance) Side bilateral Resistance TB #3 [place] Reps/Minutes 2x 15 Comments cues scap retraction, stride stance /c slight tall trunk fwd over pelvis flex Standing Exercise Name in PT Side right Resistance AROM> 1# DB Reps/Minutes x15 Comments cues no scap elevation, reports UT tiring but no pain. ext Standing Exercise Name added to HEP /c HO Side bilateral Resistance tb #2 teal band Reps/Minutes 10 Comments cued elongated WIND TECHNICIAN, scap set con& eccentric PT-OP-T Assessment and Plan Start: 10/06/23 18:02 Freq: Status: Active Protocol: Document 10/24/23 09:50 SP (Rec: 10/24/23 10:36 SP [id number]) Physical Therapy Assessment Goals activities Short Term Goal (STG) Pt will report ability to reach overhead w/o inc pain STG Duration 11/07 Detention Goal (LTG) Pt will be able to do all activities including throwing ball for dog w/o inc pain in R shoulder LTG Duration 12/22/23 strength Short Term Goal (STG) Pt will be indep w/HEP STG Duration 11/09 Director Of Property Management Goal (LTG) Pt will score at least 4+/5 on all RUE MMT and at least 4/5 EFT to show improved stability in order to do normal daily activities w/o inc pain. LTG Duration 12/21 ROM Detention Goal (LTG) Pt will have full R shoulder AROM w/o inc pain to allow all typical activities w/o shoulder pain. LTG Duration 12/21 Assessment Summary Assessment Pt tolerated tx well, good effort progressed resisted HEP more close chain with theraband. verbal and tactile cues for R>L scap retraction/ depression stability concentric and eccentric return improve bilateral vs unilateral this tx, provided TB for home for this performance. Pt was able to perform FF WNL light weight today, strain UT during D2 flexion so hold for now. Physical Therapy Plan Frequency and Duration Frequency of Treatment 2x/Week Duration of treatment (weeks) 10 Plan of Care Start Date 10/13/23 Plan of Care End Date 12/22/23 Therapeutic Interventions Therapeutic Interventions Home Exercise Program,Joint Mobilizations,Manual Therapy, Neuromuscular Re-education, Patient/Caregiver Education, Self-Care/Home Management,Soft Tissue Mobilization,Taping, Therapeutic Activities, Therapeutic Exercises Modalities Cold Pack/Ice Massage,Electric Stimulation,Hot Packs, Infrared Therapy,Ultrasound Next Visit Focus/Plan Next Note Type Treatment Note Next Visit Plan Remeasure B UE AROM, unsure position. Next: Review HEP TB and Ys off wall and advance strength as able, consider over tball. POCL: manual: AC, SC, rib, thoracic mobs to GH; STM to scalenes, SCM, UT, LS, pec, biceps
--- NOTE | 2023-10-27 14:03 | PT.OTN ---
Current Diagnoses Impingement syndrome of right shoulder (10/27/23) Physical Therapy Treatment Note PT-OP-A Visit Information Start: 10/06/23 18:02 Freq: Status: Active Protocol: Document 10/27/23 13:03 [facility] (Rec: 10/27/23 14:03 [facility] [id number]) Out-Patient Physical Therapy Visit Information Visit Information Visit Type Progress Note Visit Note 02/16 Visit Start Time 13:03 Visit Stop Time 13:45 Visit Number 5 Number of DRUM LOADER AND UNLOADER Visits 0 PT-OP-B Current Condition Start: 10/06/23 18:02 Freq: Status: Active Protocol: Document 10/13/23 11:26 [facility] (Rec: 10/13/23 13:05 [facility] [id number]) Current Condition History of Current Condition Onset Date 8 months ago Current Complaints R shoulder points to [place] region History of Current Condition Pt was coming out of and had dog's leash in hand and dog pulled hard and arm went across body fast and it hurt a lot. Still cannot throw ball for dog. pain w/overhead motions and throwing motions. Uses ice on it. Pt has a back problem and it is always there and as long as he is mindful, its okay. 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 Its a lot better since it happended but not getting any better. Hx of neck surgery also but denies pain Treatment Goals Patient/Caregiver Goals be able throw ball for dog, do overhead activities, be able to returnt o work out (wall push ups) PT-OP-C Subjective Start: 10/06/23 18:02 Freq: Status: Active Protocol: Document 10/27/23 13:03 [facility] (Rec: 10/27/23 14:03 [facility] [id number]) OP-PT Subjective Patient Comments Patient Comments pt reports shoulder doing better Patient Reported Progress Improving PT-OP-F Manual Assessment Start: 10/06/23 18:02 Freq: Status: Active Protocol: Document 10/13/23 11:26 [facility] (Rec: 10/13/23 13:05 [facility] [id number]) Manual Assessments Soft Tissue Assessment Soft Tissue Mobility Assessment tenderenss to biceps tendon, post scalene Joint Mobility Assessment Joint Mobility Assessment w/overhead motion elevation of scap PT-OP-J Posture/Palpation/Skin Start: 10/06/23 18:02 Freq: Status: Active Protocol: Document 10/13/23 11:26 [facility] (Rec: 10/13/23 13:05 [facility] [id number]) Posture Evaluation [facility] Postural Classification System [facility] Postural Classifications Posterior/Anterior Elbow Flexion Test 0 Comments Posture Comments R scap ant tipped, abd; humerus ant in glenoid R>L; R 1st rib elevated PT-OP-K Range of Motion Start: 10/06/23 18:02 Freq: Status: Active Protocol: Document 10/27/23 13:03 [facility] (Rec: 10/27/23 13:07 [facility] [id number]) Shoulder Goniometric Range of Motion Shoulder Right Active Flexion 152 Extension 69 Abduction 146 External Rotation at 90 degrees 70 Abduction External Rotation at 0 degrees Abduction 55 Internal Rotation Behind Back (text) T10 Comments mild discomfort at end range PT-OP-L Special Tests Start: 10/06/23 18:02 Freq: Status: Active Protocol: Document 10/13/23 11:26 [facility] (Rec: 10/13/23 13:05 [facility] [id number]) Special Tests Shoulder Special Tests Speed's Biceps Test Results neg R [place] Test Test Results positive R AC Joint Compression Test Results neg R Sulcus Test Results neg R Empty Can Comments positive R Neer Impingement Comments positive R [place] Impingement Comments positive R PT-OP-M Strength Start: 10/06/23 18:02 Freq: Status: Active Protocol: Document 10/27/23 13:03 [facility] (Rec: 10/27/23 14:03 [facility] [id number]) Shoulder Strength Shoulder Manual Muscle Testing Right Flexion 4+ Good+ Extension 5 Normal Abduction (C5) 4+ Good+ External Rotation 4 Good Internal Rotation 4 Good Horizontal Abduction 4+ Good+ Horizontal Adduction 4 Good Comments painful PT-OP-Q Treatments Start: 10/06/23 18:02 Freq: Status: Active Protocol: Document 10/27/23 13:03 [facility] (Rec: 10/27/23 14:03 [facility] [id number]) Therapeutic Exercises Standing Exercises pec stretch Standing Exercise Name 90/90 Side right Reps/Minutes 30sec x3 Comments doorway D2 flexion Standing Exercise Name add HEP Side right Resistance 0#, 1#, 2# Equipment Used front mirror Reps/Minutes 10 ea and 2nd set for 2# Comments cues posture and movement pattern Ys off wall Standing Exercise Name Ys off wall- review to HEP /c HO Side bilateral Resistance lvl2 Reps/Minutes 3x12 Comments cued closer to wall, cued POWER WOOD SAWYER no LB arch /c TA draw in, face near wall ER Standing Exercise Name 90/90 Resistance orange band Reps/Minutes 2x12 Comments cues elbow posiiton and scap IR Standing Exercise Name 90/90 Side right Resistance orange band Reps/Minutes 2x12 Comments cues elbow posiiton and scap Manual Therapy Treatment Consent Patient gave verbal consent for manual Yes treatment Joint Mobilizations GH Comments R inf, distraction, post, lat gapping FM SC Comments AP w/hadd c/r FM AC Comments AP clavicle w/hadd FM post scap w/flex FM PT-OP-T Assessment and Plan Start: 10/06/23 18:02 Freq: Status: Active Protocol: Document 10/27/23 13:03 [facility] (Rec: 10/27/23 14:03 [facility] [id number]) Physical Therapy Assessment Goals activities Short Term Goal (STG) Pt will report ability to reach overhead w/o inc pain STG Duration achieved 10/26 [employer] Goal (LTG) Pt will be able to do all activities including throwing ball for dog w/o inc pain in R shoulder LTG Duration 12/22/23 strength Short Term Goal (STG) Pt will be indep w/HEP STG Duration achieved advancinga s able Alf Goal (LTG) Pt will score at least 4+/5 on all RUE MMT and at least 4/5 EFT to show improved stability in order to do normal daily activities w/o inc pain. 10.26-much improved LTG Duration 12/21 ROM [employer] Goal (LTG) Pt will have full R shoulder AROM w/o inc pain to allow all typical activities w/o shoulder pain. 10/26-much improved LTG Duration 12/21 Assessment Summary Assessment Much improved ROM w/PT and today after session. Adjusted HEP to more difficult today. Pt improves ROM w/less discomfort w/manual. Pt to cont PT to work on full overhead and throwing motion ROM and strength Physical Therapy Plan Frequency and Duration Frequency of Treatment 2x/Week Duration of treatment (weeks) 10 Plan of Care Start Date 10/13/23 Plan of Care End Date 12/22/23 Next Visit Focus/Plan Next Note Type Treatment Note Next Visit Plan review new exercises, conside rover tball; manaul to shoulder for full painfree range
--- NOTE | 2023-11-01 16:24 | PT.OTN ---
Current Diagnoses Impingement syndrome of right shoulder (11/01/23) Physical Therapy Treatment Note PT-OP-A Visit Information Start: 10/06/23 18:02 Freq: Status: Active Protocol: Document 11/01/23 12:52 AB (Rec: 11/01/23 16: AB [id number]) Out-Patient Physical Therapy Visit Information Visit Information Visit Type Treatment Note Visit Note 03/19 Visit Start Time 13:48 Visit Stop Time 14:32 Visit Number 6 Number of ELECTRIC REPAIR SUPERVISOR Visits 1 PT-OP-B Current Condition Start: 10/06/23 18:02 Freq: Status: Active Protocol: Document 10/13/23 11:26 [facility] (Rec: 10/13/23 13:05 [facility] [id number]) Current Condition History of Current Condition Onset Date 8 months ago Current Complaints R shoulder points to [place] region History of Current Condition Pt was coming out of and had dog's leash in hand and dog pulled hard and arm went across body fast and it hurt a lot. Still cannot throw ball for dog. pain w/overhead motions and throwing motions. Uses ice on it. Pt has a back problem and it is always there and as long as he is mindful, its okay. 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 Its a lot better since it happended but not getting any better. Hx of neck surgery also but denies pain Treatment Goals Patient/Caregiver Goals be able throw ball for dog, do overhead activities, be able to returnt o work out (wall push ups) PT-OP-C Subjective Start: 10/06/23 18:02 Freq: Status: Active Protocol: Document 11/01/23 12:52 AB (Rec: 11/01/23 16:24 AB [id number]) OP-PT Subjective Patient Comments Patient Comments Patient reports he could do a couple of throws with the wiffle ball, comments he has to be careful not to over do it. PT-OP-F Manual Assessment Start: 10/06/23 18:02 Freq: Status: Active Protocol: Document 10/13/23 11:26 [facility] (Rec: 10/13/23 13:05 [facility] [id number]) Manual Assessments Soft Tissue Assessment Soft Tissue Mobility Assessment tenderenss to biceps tendon, post scalene Joint Mobility Assessment Joint Mobility Assessment w/overhead motion elevation of scap PT-OP-J Posture/Palpation/Skin Start: 10/06/23 18:02 Freq: Status: Active Protocol: Document 10/13/23 11:26 [facility] (Rec: 10/13/23 13:05 [facility] [id number]) Posture Evaluation [facility] Postural Classification System [place] Postural Classifications Posterior/Anterior Elbow Flexion Test 0 Comments Posture Comments R scap ant tipped, abd; humerus ant in glenoid R>L; R 1st rib elevated PT-OP-K Range of Motion Start: 10/06/23 18:02 Freq: Status: Active Protocol: Document 10/27/23 13:03 [facility] (Rec: 10/27/23 13:07 [facility] [id number]) Shoulder Goniometric Range of Motion Shoulder Right Active Flexion 152 Extension 69 Abduction 146 External Rotation at 90 degrees 70 Abduction External Rotation at 0 degrees Abduction 55 Internal Rotation Behind Back (text) T10 Comments mild discomfort at end range PT-OP-L Special Tests Start: 10/06/23 18:02 Freq: Status: Active Protocol: Document 10/13/23 11:26 [facility] (Rec: 10/13/23 13:05 [facility] [id number]) Special Tests Shoulder Special Tests Speed's Biceps Test Results neg R [place] Test Test Results positive R AC Joint Compression Test Results neg R Sulcus Test Results neg R Empty Can Comments positive R Neer Impingement Comments positive R [place] Adam Impingement Comments positive R PT-OP-M Strength Start: 10/06/23 18:02 Freq: Status: Active Protocol: Document 10/27/23 13:03 [facility] (Rec: 10/27/23 14:03 [facility] [id number]) Shoulder Strength Shoulder Manual Muscle Testing Right Flexion 4+ Good+ Extension 5 Normal Abduction (C5) 4+ Good+ External Rotation 4 Good Internal Rotation 4 Good Horizontal Abduction 4+ Good+ Horizontal Adduction 4 Good Comments painful PT-OP-Q Treatments Start: 10/06/23 18:02 Freq: Status: Active Protocol: Document 11/01/23 12:52 AB (Rec: 11/01/23 16:24 AB [id number]) Therapeutic Exercises Supine Exercises supine shoulder flexion Side bilateral Reps/Minutes 10 seconds X 6 Standing Exercises statue of [place] Standing Exercise Name Rhythmic oscillation Equipment Used yellow therabar Reps/Minutes 30 seconds each LE pec stretch Standing Exercise Name 90/90 Side right Reps/Minutes 60sec x1 Comments doorway ER Standing Exercise Name 90/90 Side right Resistance level one band Reps/Minutes X10 Comments cues elbow posiiton and scap IR Standing Exercise Name 90/90 Side right Resistance level one band Reps/Minutes X10 Comments cues elbow posiiton and scap Manual Therapy Treatment Soft Tissue Mobilization right shoulder Body Location UT, levator scap, periscapular muscular muscles Mobilization Type Cross-Friction,Rolling, Sustained Pressure Intensity/Depth Moderate Body Position Sidelying pec Body Location right Mobilization Type Cross-Friction,Rolling Intensity/Depth Moderate Body Position Hooklying Joint Mobilizations GH Joint right Direction inf and AP Grade III Body Position Hooklying Reps/Duration X10 X 2 each R scapulothoracic Direction retraction/depression Grade III Body Position L SL SC Joint inf right Grade II Body Position Hooklying AC Joint inf right Grade II Body Position Hooklying ribs Joint 1st rib Direction inf Grade III Reps/Duration X10 X 2 PT-OP-T Assessment and Plan Start: 10/06/23 18:02 Freq: Status: Active Protocol: Document 11/01/23 12:52 AB (Rec: 11/01/23 16:24 AB [id number]) Physical Therapy Assessment Goals activities Short Term Goal (STG) Pt will report ability to reach overhead w/o inc pain STG Duration achieved 10/26 Group Home Goal (LTG) Pt will be able to do all activities including throwing ball for dog w/o inc pain in R shoulder LTG Duration 12/22/23 strength Short Term Goal (STG) Pt will be indep w/HEP STG Duration achieved advancinga s able Bottom Loader Goal (LTG) Pt will score at least 4+/5 on all RUE MMT and at least 4/5 EFT to show improved stability in order to do normal daily activities w/o inc pain. 10.26-much improved LTG Duration 12/21 ROM Group Home Goal (LTG) Pt will have full R shoulder AROM w/o inc pain to allow all typical activities w/o shoulder pain. 10/26-much improved LTG Duration 12/21 Assessment Summary Assessment 151 deg AROM right shoulder flexion end of session reports having no pain end of session . Physical Therapy Plan Frequency and Duration Frequency of Treatment 2x/Week Duration of treatment (weeks) 10 Plan of Care Start Date 10/13/23 Plan of Care End Date 12/22/23 Next Visit Focus/Plan Next Note Type Treatment Note Next Visit Plan review new exercises, conside rover tball; manaul to shoulder for full painfree range
--- NOTE | 2023-11-04 16:25 | PT.OTN ---
Current Diagnoses Impingement syndrome of right shoulder (11/04/23) Physical Therapy Treatment Note PT-OP-A Visit Information Start: 10/06/23 18:02 Freq: Status: Active Protocol: Document 11/04/23 12:56 AB (Rec: 11/04/23 16:24 AB [id number]) Out-Patient Physical Therapy Visit Information Visit Information Visit Type Treatment Note Visit Note 04/16 Access Code: [email or web address] Visit Start Time 14:35 Visit Stop Time 15:19 Visit Number 7 Number of GENERATOR SWITCHBOARD OPERATOR Visits 2 PT-OP-B Current Condition Start: 10/06/23 18:02 Freq: Status: Active Protocol: Document 10/13/23 11:26 [facility] (Rec: 10/13/23 13:05 [facility] [id number]) Current Condition History of Current Condition Onset Date 8 months ago Current Complaints R shoulder points to [place] region History of Current Condition Pt was coming out of and had dog's leash in hand and dog pulled hard and arm went across body fast and it hurt a lot. Still cannot throw ball for dog. pain w/overhead motions and throwing motions. Uses ice on it. Pt has a back problem and it is always there and as long as he is mindful, its okay. 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 Its a lot better since it happended but not getting any better. Hx of neck surgery also but denies pain Treatment Goals Patient/Caregiver Goals be able throw ball for dog, do overhead activities, be able to returnt o work out (wall push ups) PT-OP-C Subjective Start: 10/06/23 18:02 Freq: Status: Active Protocol: Document 11/04/23 12:56 AB (Rec: 11/04/23 16:24 AB [id number]) OP-PT Subjective Patient Comments Patient Comments Patient reports he can throw overhead a little bit, not as far as previous to injury, but can do it. Patient rates right shoulder pain 4/10 start of session. AROM right shoulder flexion 149 deg start of session. PT-OP-F Manual Assessment Start: 10/06/23 18:02 Freq: Status: Active Protocol: Document 10/13/23 11:26 [facility] (Rec: 10/13/23 13:05 [facility] [id number]) Manual Assessments Soft Tissue Assessment Soft Tissue Mobility Assessment tenderenss to biceps tendon, post scalene Joint Mobility Assessment Joint Mobility Assessment w/overhead motion elevation of scap PT-OP-J Posture/Palpation/Skin Start: 10/06/23 18:02 Freq: Status: Active Protocol: Document 10/13/23 11:26 [facility] (Rec: 10/13/23 13:05 [facility] [id number]) Posture Evaluation [facility] Postural Classification System [facility] Postural Classifications Posterior/Anterior Elbow Flexion Test 0 Comments Posture Comments R scap ant tipped, abd; humerus ant in glenoid R>L; R 1st rib elevated PT-OP-K Range of Motion Start: 10/06/23 18:02 Freq: Status: Active Protocol: Document 10/27/23 13:03 [facility] (Rec: 10/27/23 13:07 [facility] [id number]) Shoulder Goniometric Range of Motion Shoulder Right Active Flexion 152 Extension 69 Abduction 146 External Rotation at 90 degrees 70 Abduction External Rotation at 0 degrees Abduction 55 Internal Rotation Behind Back (text) T10 Comments mild discomfort at end range PT-OP-L Special Tests Start: 10/06/23 18:02 Freq: Status: Active Protocol: Document 10/13/23 11:26 [facility] (Rec: 10/13/23 13:05 [facility] [id number]) Special Tests Shoulder Special Tests Speed's Biceps Test Results neg R [place] Test Test Results positive R AC Joint Compression Test Results neg R [place] Test Results neg R Empty Can Comments positive R Neer Impingement Comments positive R [place] Adam Impingement Comments positive R PT-OP-M Strength Start: 10/06/23 18:02 Freq: Status: Active Protocol: Document 10/27/23 13:03 [facility] (Rec: 10/27/23 14:03 [facility] [id number]) Shoulder Strength Shoulder Manual Muscle Testing Right Flexion 4+ Good+ Extension 5 Normal Abduction (C5) 4+ Good+ External Rotation 4 Good Internal Rotation 4 Good Horizontal Abduction 4+ Good+ Horizontal Adduction 4 Good Comments painful PT-OP-Q Treatments Start: 10/06/23 18:02 Freq: Status: Active Protocol: Document 11/04/23 12:56 AB (Rec: 11/04/23 16:24 AB [id number]) Therapeutic Exercises Supine Exercises supine shoulder flexion Side bilateral Reps/Minutes 10 seconds X 10 Sidelying Exercises Shld trio Sidelying Exercise Name abd, ER JAZLYN only this session Side right Reps/Minutes X10 reps each post manual Comments monitored for pain, verbal cues Standing Exercises high row Standing Exercise Name HEP Side bilateral Resistance level 3 [place] Reps/Minutes 15 x2 Comments Verbal, visual and tactile cues statue of [place] Standing Exercise Name Rhythmic oscillation Equipment Used yellow therabar Reps/Minutes 30 seconds each LE pec stretch Standing Exercise Name 90/90 Side right Reps/Minutes 60sec x1 Comments doorway Manual Therapy Treatment Soft Tissue Mobilization right shoulder Body Location UT, levator scap, periscapular muscular muscles Mobilization Type Cross-Friction,Rolling, Sustained Pressure Intensity/Depth Moderate Body Position Sidelying pec Body Location right Mobilization Type Cross-Friction,Rolling Intensity/Depth Moderate Body Position Hooklying Joint Mobilizations GH Joint right Direction inf and AP Grade III Body Position Hooklying Reps/Duration X10 X 3 each R scapulothoracic Direction retraction/depression Grade III Body Position L SL SC Joint inf right Grade II Body Position Hooklying Reps/Duration X10 AC Joint inf right Grade II Body Position Hooklying Reps/Duration X10 ribs Joint 1st rib and second Direction inf Grade III Reps/Duration X10 X 2 PT-OP-T Assessment and Plan Start: 10/06/23 18:02 Freq: Status: Active Protocol: Document 11/04/23 12:56 AB (Rec: 11/04/23 16:24 AB [id number]) Physical Therapy Assessment Goals activities Short Term Goal (STG) Pt will report ability to reach overhead w/o inc pain STG Duration achieved 10/26 Boiler Control Technician Goal (LTG) Pt will be able to do all activities including throwing ball for dog w/o inc pain in R shoulder LTG Duration 12/22/23 strength Short Term Goal (STG) Pt will be indep w/HEP STG Duration achieved advancinga s able Boiler Control Technician Goal (LTG) Pt will score at least 4+/5 on all RUE MMT and at least 4/5 EFT to show improved stability in order to do normal daily activities w/o inc pain. 10.26-much improved LTG Duration 12/21 ROM [facility] Goal (LTG) Pt will have full R shoulder AROM w/o inc pain to allow all typical activities w/o shoulder pain. 10/26-much improved LTG Duration 12/21 Assessment Summary Assessment Patient reports having no pain end of session. Able to perform high row with no reports of increased pain, but requires increased verbal cues to avoid triceps extension. Physical Therapy Plan Frequency and Duration Frequency of Treatment 2x/Week Duration of treatment (weeks) 10 Plan of Care Start Date 10/13/23 Plan of Care End Date 12/22/23 Next Visit Focus/Plan Next Note Type Treatment Note Next Visit Plan review new exercises, conside rover tball; manaul to shoulder for full painfree range
--- NOTE | 2023-11-11 16:24 | PT.OTN ---
Current Diagnoses Impingement syndrome of right shoulder (11/11/23) Physical Therapy Treatment Note PT-OP-A Visit Information Start: 10/06/23 18:02 Freq: Status: Active Protocol: Document 11/11/23 13:21 AB (Rec: 11/11/23 16:24 AB [id number]) Out-Patient Physical Therapy Visit Information Visit Information Visit Type Treatment Note Visit Note 05/17 Access Code: [email or web address] Visit Start Time 14:34 Visit Stop Time 15:19 Visit Number 8 Number of TAPER/FINISHER Visits 3 PT-OP-B Current Condition Start: 10/06/23 18:02 Freq: Status: Active Protocol: Document 10/13/23 11:26 [facility] (Rec: 10/13/23 13:05 [facility] [id number]) Current Condition History of Current Condition Onset Date 8 months ago Current Complaints R shoulder points to [place] region History of Current Condition Pt was coming out of and had dog's leash in hand and dog pulled hard and arm went across body fast and it hurt a lot. Still cannot throw ball for dog. pain w/overhead motions and throwing motions. Uses ice on it. Pt has a back problem and it is always there and as long as he is mindful, its okay. 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 Its a lot better since it happended but not getting any better. Hx of neck surgery also but denies pain Treatment Goals Patient/Caregiver Goals be able throw ball for dog, do overhead activities, be able to returnt o work out (wall push ups) PT-OP-C Subjective Start: 10/06/23 18:02 Freq: Status: Active Protocol: Document 11/11/23 13:21 AB (Rec: 11/11/23 16:24 AB [id number]) OP-PT Subjective Patient Comments Patient Comments Patient reports the shoulder is better, isn't trying to throw the ball as hard as before. Patient rates right shoulder pain 3/10 start of session. AROM 141 deg shoulder flexion start of session. PT-OP-F Manual Assessment Start: 10/06/23 18:02 Freq: Status: Active Protocol: Document 10/13/23 11:26 [facility] (Rec: 10/13/23 13:05 [facility] [id number]) Manual Assessments Soft Tissue Assessment Soft Tissue Mobility Assessment tenderenss to biceps tendon, post scalene Joint Mobility Assessment Joint Mobility Assessment w/overhead motion elevation of scap PT-OP-J Posture/Palpation/Skin Start: 10/06/23 18:02 Freq: Status: Active Protocol: Document 10/13/23 11:26 [facility] (Rec: 10/13/23 13:05 [facility] [id number]) Posture Evaluation [facility] Postural Classification System [facility] Postural Classifications Posterior/Anterior Elbow Flexion Test 0 Comments Posture Comments R scap ant tipped, abd; humerus ant in glenoid R>L; R 1st rib elevated PT-OP-K Range of Motion Start: 10/06/23 18:02 Freq: Status: Active Protocol: Document 10/27/23 13:03 [facility] (Rec: 10/27/23 13:07 [facility] [id number]) Shoulder Goniometric Range of Motion Shoulder Right Active Flexion 152 Extension 69 Abduction 146 External Rotation at 90 degrees 70 Abduction External Rotation at 0 degrees Abduction 55 Internal Rotation Behind Back (text) T10 Comments mild discomfort at end range PT-OP-L Special Tests Start: 10/06/23 18:02 Freq: Status: Active Protocol: Document 10/13/23 11:26 [facility] (Rec: 10/13/23 13:05 [facility] [id number]) Special Tests Shoulder Special Tests Speed's Biceps Test Results neg R [place] Test Test Results positive R AC Joint Compression Test Results neg R [place] Test Results neg R Empty Can Comments positive R Neer Impingement Comments positive R [place] Impingement Comments positive R PT-OP-M Strength Start: 10/06/23 18:02 Freq: Status: Active Protocol: Document 10/27/23 13:03 [facility] (Rec: 10/27/23 14:03 [facility] [id number]) Shoulder Strength Shoulder Manual Muscle Testing Right Flexion 4+ Good+ Extension 5 Normal Abduction (C5) 4+ Good+ External Rotation 4 Good Internal Rotation 4 Good Horizontal Abduction 4+ Good+ Horizontal Adduction 4 Good Comments painful PT-OP-Q Treatments Start: 10/06/23 18:02 Freq: Status: Active Protocol: Document 11/11/23 13:21 AB (Rec: 11/11/23 16:24 AB [id number]) Therapeutic Exercises Supine Exercises supine shoulder flexion Side bilateral Reps/Minutes 10 seconds X 10 Sidelying Exercises Shld trio Sidelying Exercise Name abd, HABD, ER Side right Reps/Minutes X10 each Comments verbal cues Standing Exercises Body blade Standing Exercise Name 1. UE at side med/lat Side right Reps/Minutes one minute Comments david for pain, towel throw pre and post high row Standing Exercise Name HEP Side bilateral Resistance level 3 [place] Reps/Minutes 15 x1 Comments Verbal, visual and tactile cues statue of [place] Standing Exercise Name Rhythmic oscillation Equipment Used yellow therabar Reps/Minutes 0ne minute Comments towel throw pre and post ER Standing Exercise Name 90/90 Side right Resistance level one band Reps/Minutes X10 Comments cues elbow posiiton and scap IR Standing Exercise Name 90/90 Side right Resistance level one band Reps/Minutes X10 Comments cues elbow posiiton and scap row Standing Exercise Name HEP reviewed (improved no leaning back split stance) Side bilateral Resistance TB #3 [place] Reps/Minutes x 15 Comments cues scap retraction, stride stance /c slight tall trunk fwd over pelvis Manual Therapy Treatment Soft Tissue Mobilization right shoulder Body Location UT, levator scap, periscapular muscular muscles Mobilization Type Cross-Friction,Rolling, Sustained Pressure Intensity/Depth Moderate Body Position Sidelying pec Body Location right Mobilization Type Cross-Friction,Rolling Intensity/Depth Moderate Body Position Hooklying Joint Mobilizations GH Joint right Direction inf and AP Grade III Body Position Hooklying Reps/Duration X10 X 3 each R scapulothoracic Direction retraction/depression Grade III Body Position L SL SC Joint inf right Grade II Body Position Hooklying Reps/Duration X10 AC Joint inf right Grade II Body Position Hooklying Reps/Duration X10 ribs Joint 1st rib and second Direction inf Grade III Reps/Duration X10 X 2 PT-OP-T Assessment and Plan Start: 10/06/23 18:02 Freq: Status: Active Protocol: Document 11/11/23 13:21 AB (Rec: 11/11/23 16:24 AB [id number]) Physical Therapy Assessment Goals activities Short Term Goal (STG) Pt will report ability to reach overhead w/o inc pain STG Duration achieved 10/26 Senior Living Goal (LTG) Pt will be able to do all activities including throwing ball for dog w/o inc pain in R shoulder LTG Duration 12/22/23 strength Short Term Goal (STG) Pt will be indep w/HEP STG Duration achieved advancinga s able Senior Living Goal (LTG) Pt will score at least 4+/5 on all RUE MMT and at least 4/5 EFT to show improved stability in order to do normal daily activities w/o inc pain. 10.26-much improved LTG Duration 12/21 ROM Air Valve Mechanic Goal (LTG) Pt will have full R shoulder AROM w/o inc pain to allow all typical activities w/o shoulder pain. 10/26-much improved LTG Duration 12/21 Assessment Summary Assessment 154 deg AROM right shoulder flexion, patient reports able to reach across chest without the pinching sensation he felt start of session. Physical Therapy Plan Frequency and Duration Frequency of Treatment 2x/Week Duration of treatment (weeks) 10 Plan of Care Start Date 10/13/23 Plan of Care End Date 12/22/23 Next Visit Focus/Plan Next Note Type Treatment Note Next Visit Plan review new exercises, conside rover tball; maual to shoulder for full painfree range
--- NOTE | 2023-11-15 13:26 | PT.OTN ---
Current Diagnoses Impingement syndrome of right shoulder (11/15/23) Physical Therapy Treatment Note PT-OP-A Visit Information Start: 10/06/23 18:02 Freq: Status: Active Protocol: Document 11/15/23 09:55 [facility] (Rec: 11/15/23 13:04 [facility] [id number]) Out-Patient Physical Therapy Visit Information Visit Information Visit Type Progress Note Visit Note 02/16 Access Code: [email or web address] Visit Start Time 09:50 Visit Stop Time 10:30 Visit Number 9 Number of DRIVER Visits 0 PT-OP-B Current Condition Start: 10/06/23 18:02 Freq: Status: Active Protocol: Document 10/13/23 11:26 [facility] (Rec: 10/13/23 13:05 [facility] [id number]) Current Condition History of Current Condition Onset Date 8 months ago Current Complaints R shoulder points to [place] region History of Current Condition Pt was coming out of and had dog's leash in hand and dog pulled hard and arm went across body fast and it hurt a lot. Still cannot throw ball for dog. pain w/overhead motions and throwing motions. Uses ice on it. Pt has a back problem and it is always there and as long as he is mindful, its okay. 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 Its a lot better since it happended but not getting any better. Hx of neck surgery also but denies pain Treatment Goals Patient/Caregiver Goals be able throw ball for dog, do overhead activities, be able to returnt o work out (wall push ups) PT-OP-C Subjective Start: 10/06/23 18:02 Freq: Status: Active Protocol: Document 11/15/23 09:55 [facility] (Rec: 11/15/23 13:04 [facility] [id number]) OP-PT Subjective Patient Comments Patient Comments pt reports shoulder is is doing much better and he can move it a lot more PT-OP-F Manual Assessment Start: 10/06/23 18:02 Freq: Status: Active Protocol: Document 10/13/23 11:26 [facility] (Rec: 10/13/23 13:05 [facility] [id number]) Manual Assessments Soft Tissue Assessment Soft Tissue Mobility Assessment tenderenss to biceps tendon, post scalene Joint Mobility Assessment Joint Mobility Assessment w/overhead motion elevation of scap PT-OP-J Posture/Palpation/Skin Start: 10/06/23 18:02 Freq: Status: Active Protocol: Document 10/13/23 11:26 [facility] (Rec: 10/13/23 13:05 [facility] [id number]) Posture Evaluation [facility] Postural Classification System Nyla Postural Classifications Posterior/Anterior Elbow Flexion Test 0 Comments Posture Comments R scap ant tipped, abd; humerus ant in glenoid R>L; R 1st rib elevated PT-OP-K Range of Motion Start: 10/06/23 18:02 Freq: Status: Active Protocol: Document 11/15/23 09:55 [facility] (Rec: 11/15/23 13:04 [facility] [id number]) Shoulder Goniometric Range of Motion Shoulder Right Active Flexion 151 Extension 69 Abduction 174 External Rotation at 90 degrees 76 Abduction External Rotation at 0 degrees Abduction 51 Internal Rotation Behind Back (text) T10 Comments mild discomfort at end range PT-OP-L Special Tests Start: 10/06/23 18:02 Freq: Status: Active Protocol: Document 10/13/23 11:26 [facility] (Rec: 10/13/23 13:05 [facility] [id number]) Special Tests Shoulder Special Tests Speed's Biceps Test Results neg R [place] Test Test Results positive R AC Joint Compression Test Results neg R Sulcus Test Results neg R Empty Can Comments positive R Neer Impingement Comments positive R Ku Adam Impingement Comments positive R PT-OP-M Strength Start: 10/06/23 18:02 Freq: Status: Active Protocol: Document 11/15/23 09:55 [facility] (Rec: 11/15/23 13:04 [facility] [id number]) Shoulder Strength Shoulder Manual Muscle Testing Right Flexion 5 Normal Extension 5 Normal Abduction (C5) 5 Normal External Rotation 4+ Good+ Internal Rotation 5 Normal Horizontal Abduction 5 Normal Horizontal Adduction 4 Good Left Flexion 5 Normal Extension 5 Normal Abduction (C5) 5 Normal Adduction 5 Normal External Rotation 5 Normal Internal Rotation 5 Normal Horizontal Abduction 5 Normal Horizontal Adduction 5 Normal PT-OP-Q Treatments Start: 10/06/23 18:02 Freq: Status: Active Protocol: Document 11/15/23 09:55 [facility] (Rec: 11/15/23 13:04 [facility] [id number]) Therapeutic Exercises Standing Exercises D1 Standing Exercise Name flex Side right Equipment Used L1 Reps/Minutes 15 Comments cues for motion statue of liberty Standing Exercise Name Rhythmic oscillation Equipment Used yellow therabar Reps/Minutes 30 sec Habd Side bilateral Equipment Used L3 Reps/Minutes 15 ER Standing Exercise Name 90/90 (sitting today d/t pain in hip) Side right Resistance level one band Reps/Minutes 15 Comments cues elbow posiiton and scap IR Standing Exercise Name 90/90 (sitting today d/t pain in hip) Side right Resistance level one band Reps/Minutes 15 Comments cues elbow posiiton and scap Manual Therapy Treatment Consent Patient gave verbal consent for manual Yes treatment Soft Tissue Mobilization superior Body Location R UT, LS, scalenes Mobilization Type Rolling Intensity/Depth Moderate Body Position Supine pec Body Location right Mobilization Type Rolling,Sustained Pressure Intensity/Depth Moderate Body Position Hooklying Comments w/IR Joint Mobilizations GH Comments R post c/r SC Joint R distraction c/r AC Joint post scap c/r w/ant elevation Grade II Body Position Hooklying ribs Comments general caudal w/ant elevation scap c/r; external torsion R rib 6 c/r AP ribs 2-4 w/breathing PT-OP-T Assessment and Plan Start: 10/06/23 18:02 Freq: Status: Active Protocol: Document 11/15/23 09:55 [facility] (Rec: 11/15/23 13:04 [facility] [id number]) Physical Therapy Assessment Goals activities Short Term Goal (STG) Pt will report ability to reach overhead w/o inc pain STG Duration achieved 10/26 Top Executive Goal (LTG) Pt will be able to do all activities including throwing ball for dog w/o inc pain in R shoulder 11/14-soreness after LTG Duration 12/22/23 strength Short Term Goal (STG) Pt will be indep w/HEP STG Duration achieved advancinga s able Top Executive Goal (LTG) Pt will score at least 4+/5 on all RUE MMT and at least 4/5 EFT to show improved stability in order to do normal daily activities w/o inc pain. 10.26-much improved 11/14-much improved mild pain w / LTG Duration 12/21 ROM Residential Goal (LTG) Pt will have full R shoulder AROM w/o inc pain to allow all typical activities w/o shoulder pain. 10/26-much improved 11/14-mild discomfort end range LTG Duration 12/21 Assessment Summary Assessment pt cont to improve w/ROM and strength and has limits w/last bit of strength and some discomfort w/end range motion. Improving well with PT. COnt PT to improve function w/less soreness. exercises performed seated vs standing today d/t R hip pain. Pt to follow up w/ orthoo ffice today Physical Therapy Plan Next Visit Focus/Plan Next Note Type Treatment Note Next Visit Plan review new exercises, maual to shoulder for full painfree range
--- NOTE | 2023-11-17 12:15 | PT.OTN ---
Current Diagnoses Impingement syndrome of right shoulder (11/17/23) Physical Therapy Treatment Note PT-OP-A Visit Information Start: 10/06/23 18:02 Freq: Status: Active Protocol: Document 11/17/23 11:36 [facility] (Rec: 11/17/23 12:18 [facility] [id number]) Out-Patient Physical Therapy Visit Information Visit Information Visit Type Treatment Note Visit Note 03/19 after PN Visit Start Time 11:36 Visit Stop Time 12:15 Visit Number 10 Number of ELEVATED GUARD Visits 1 PT-OP-B Current Condition Start: 10/06/23 18:02 Freq: Status: Active Protocol: Document 10/13/23 11:26 [facility] (Rec: 10/13/23 13:05 [facility] [id number]) Current Condition History of Current Condition Onset Date 8 months ago Current Complaints R shoulder points to [place] region History of Current Condition Pt was coming out of and had dog's leash in hand and dog pulled hard and arm went across body fast and it hurt a lot. Still cannot throw ball for dog. pain w/overhead motions and throwing motions. Uses ice on it. Pt has a back problem and it is always there and as long as he is mindful, its okay. 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 Its a lot better since it happended but not getting any better. Hx of neck surgery also but denies pain Treatment Goals Patient/Caregiver Goals be able throw ball for dog, do overhead activities, be able to returnt o work out (wall push ups) PT-OP-C Subjective Start: 10/06/23 18:02 Freq: Status: Active Protocol: Document 11/17/23 11:36 [facility] (Rec: 11/17/23 12:18 [facility] [id number]) OP-PT Subjective Patient Comments Patient Comments Pt reports range of motion doing well, able toreach higher overhead with less pinching feeling. I think I'm getting there. He stated isn 't standing as wellt today due to R hip pain, has ortho appt for shot after PT. Started sleeping in recliner for comfort. PT-OP-F Manual Assessment Start: 10/06/23 18:02 Freq: Status: Active Protocol: Document 10/13/23 11:26 [facility] (Rec: 10/13/23 13:05 [facility] [id number]) Manual Assessments Soft Tissue Assessment Soft Tissue Mobility Assessment tenderenss to biceps tendon, post scalene Joint Mobility Assessment Joint Mobility Assessment w/overhead motion elevation of scap PT-OP-J Posture/Palpation/Skin Start: 10/06/23 18:02 Freq: Status: Active Protocol: Document 10/13/23 11:26 [facility] (Rec: 10/13/23 13:05 [facility] [id number]) Posture Evaluation [facility] Postural Classification System [facility] Postural Classifications Posterior/Anterior Elbow Flexion Test 0 Comments Posture Comments R scap ant tipped, abd; humerus ant in glenoid R>L; R 1st rib elevated PT-OP-K Range of Motion Start: 10/06/23 18:02 Freq: Status: Active Protocol: Document 11/15/23 09:55 [facility] (Rec: 11/15/23 13:04 [facility] [id number]) Shoulder Goniometric Range of Motion Shoulder Right Active Flexion 151 Extension 69 Abduction 174 External Rotation at 90 degrees 76 Abduction External Rotation at 0 degrees Abduction 51 Internal Rotation Behind Back (text) T10 Comments mild discomfort at end range PT-OP-L Special Tests Start: 10/06/23 18:02 Freq: Status: Active Protocol: Document 10/13/23 11:26 [facility] (Rec: 10/13/23 13:05 [facility] [id number]) Special Tests Shoulder Special Tests Speed's Biceps Test Results neg R [place] Test Test Results positive R AC Joint Compression Test Results neg R Sulcus Test Results neg R Empty Can Comments positive R Neer Impingement Comments positive R [place] Adam Impingement Comments positive R PT-OP-M Strength Start: 10/06/23 18:02 Freq: Status: Active Protocol: Document 11/15/23 09:55 [facility] (Rec: 11/15/23 13:04 [facility] [id number]) Shoulder Strength Shoulder Manual Muscle Testing Right Flexion 5 Normal Extension 5 Normal Abduction (C5) 5 Normal External Rotation 4+ Good+ Internal Rotation 5 Normal Horizontal Abduction 5 Normal Horizontal Adduction 4 Good Left Flexion 5 Normal Extension 5 Normal Abduction (C5) 5 Normal Adduction 5 Normal External Rotation 5 Normal Internal Rotation 5 Normal Horizontal Abduction 5 Normal Horizontal Adduction 5 Normal PT-OP-Q Treatments Start: 10/06/23 18:02 Freq: Status: Active Protocol: Document 11/17/23 11:36 [facility] (Rec: 11/17/23 12:18 [facility] [id number]) Cardio Equipment Upper Body Ergometer (UBE) Duration (Minutes) 4 RPM 60 Seat Position 11 Height 3.5 Other 1 min f/b Therapeutic Exercises Standing Exercises throwing motion Standing Exercise Name seated today due to R hip pain standing Side right Resistance TB #3 (anchored behind him) Equipment Used trialed in PT Reps/Minutes x10 Comments cued eccentric control while allow abdER Abduction Standing Exercise Name seated today due to R hip pain standing Side right Resistance TB #3 anchored under R foot Reps/Minutes x10 Comments good tiring but good form D1 Standing Exercise Name Extension & flex Side right Equipment Used L1 light blue: flex anchored under R foot, ext anchored over door Reps/Minutes 15 Comments cues for motion statue of liberty Standing Exercise Name Rhythmic oscillation Equipment Used yellow therabar> then hammer Reps/Minutes 30 sec each Comments good shoulder muscle tiring pec stretch Standing Exercise Name 90/90 Side right Reps/Minutes 60sec x1 Comments doorway D2 flexion Standing Exercise Name seated today due to R hip pain standing Side right Resistance TB #1 - anchored under L thigh /leg Equipment Used front mirror Reps/Minutes x15 reps Comments cues posture and movement pattern Habd Standing Exercise Name seated today due to R hip pain standing Side bilateral Equipment Used L3 Reps/Minutes 15 Comments good chest stretch ER Standing Exercise Name 90/90 (sitting today d/t pain in hip) Side right Resistance level 1>3 T Reps/Minutes 8 Comments cues elbow into side, sit front seat- good challenge- good effort IR Standing Exercise Name 90/90 (sitting today d/t pain in hip) Side right Resistance level one band Reps/Minutes 15 Comments cues elbow posiiton and scap PT-OP-T Assessment and Plan Start: 10/06/23 18:02 Freq: Status: Active Protocol: Document 11/17/23 11:36 [facility] (Rec: 11/17/23 12:18 [facility] [id number]) Physical Therapy Assessment Goals activities Short Term Goal (STG) Pt will report ability to reach overhead w/o inc pain STG Duration achieved 10/26 Shelter Goal (LTG) Pt will be able to do all activities including throwing ball for dog w/o inc pain in R shoulder 11/14-soreness after LTG Duration 12/22/23 strength Short Term Goal (STG) Pt will be indep w/HEP STG Duration achieved advancinga s able Wing Mailer Machine Operator Goal (LTG) Pt will score at least 4+/5 on all RUE MMT and at least 4/5 EFT to show improved stability in order to do normal daily activities w/o inc pain. 10.26-much improved 11/14-much improved mild pain w / LTG Duration 12/21 ROM Wing Mailer Machine Operator Goal (LTG) Pt will have full R shoulder AROM w/o inc pain to allow all typical activities w/o shoulder pain. 10/26-much improved 11/14-mild discomfort end range LTG Duration 12/21 Assessment Summary Assessment Pt improved ROM against resistance with good effort, occasional cues for no [place] recruitment seated today due to R hip pain and modify reps if needed for tiring. Pt almost full ROM, remeasure next tx and he will check out ADLs and if back to normal for R shld will check in on need to continue. Physical Therapy Plan Frequency and Duration Frequency of Treatment 2x/Week Duration of treatment (weeks) 10 Plan of Care Start Date 10/13/23 Plan of Care End Date 12/22/23 Therapeutic Interventions Therapeutic Interventions Home Exercise Program,Joint Mobilizations,Manual Therapy, Neuromuscular Re-education, Patient/Caregiver Education, Self-Care/Home Management,Soft Tissue Mobilization,Taping, Therapeutic Activities, Therapeutic Exercises Modalities Cold Pack/Ice Massage,Electric Stimulation,Hot Packs, Infrared Therapy,Ultrasound Next Visit Focus/Plan Next Note Type Treatment Note Next Visit Plan Review HEP standing vs seated secondary to R hip pain. Ask how shot went in R hip. HEP and remeasure R shld AROM. POC: maual to shoulder for full painfree range
--- NOTE | 2023-11-22 15:12 | PT.OTN ---
Current Diagnoses Impingement syndrome of right shoulder (11/22/23) Physical Therapy Treatment Note PT-OP-A Visit Information Start: 10/06/23 18:02 Freq: Status: Active Protocol: Document 11/22/23 14:29 [facility] (Rec: 11/22/23 15:11 [facility] [id number]) Out-Patient Physical Therapy Visit Information Visit Information Visit Type Discharge Summary Visit Note 04/16 Visit Start Time 14:30 Visit Stop Time 15:10 Visit Number 11 Number of RETREAD SUPERVISOR Visits 0 PT-OP-B Current Condition Start: 10/06/23 18:02 Freq: Status: Active Protocol: Document 10/13/23 11:26 [facility] (Rec: 10/13/23 13:05 [facility] [id number]) Current Condition History of Current Condition Onset Date 8 months ago Current Complaints R shoulder points to [place] region History of Current Condition Pt was coming out of and had dog's leash in hand and dog pulled hard and arm went across body fast and it hurt a lot. Still cannot throw ball for dog. pain w/overhead motions and throwing motions. Uses ice on it. Pt has a back problem and it is always there and as long as he is mindful, its okay. 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 Its a lot better since it happended but not getting any better. Hx of neck surgery also but denies pain Treatment Goals Patient/Caregiver Goals be able throw ball for dog, do overhead activities, be able to returnt o work out (wall push ups) PT-OP-C Subjective Start: 10/06/23 18:02 Freq: Status: Active Protocol: Document 11/22/23 14:29 [facility] (Rec: 11/22/23 15:11 [facility] [id number]) OP-PT Subjective Patient Comments Patient Comments Pt reports main cont issue w/ shoulder is Habd. set up for injection 12/08 for hip PT-OP-F Manual Assessment Start: 10/06/23 18:02 Freq: Status: Active Protocol: Document 10/13/23 11:26 [facility] (Rec: 10/13/23 13:05 [facility] [id number]) Manual Assessments Soft Tissue Assessment Soft Tissue Mobility Assessment tenderenss to biceps tendon, post scalene Joint Mobility Assessment Joint Mobility Assessment w/overhead motion elevation of scap PT-OP-J Posture/Palpation/Skin Start: 10/06/23 18:02 Freq: Status: Active Protocol: Document 10/13/23 11:26 [facility] (Rec: 10/13/23 13:05 [facility] [id number]) Posture Evaluation [facility] Postural Classification System Nyla Postural Classifications Posterior/Anterior Elbow Flexion Test 0 Comments Posture Comments R scap ant tipped, abd; humerus ant in glenoid R>L; R 1st rib elevated PT-OP-K Range of Motion Start: 10/06/23 18:02 Freq: Status: Active Protocol: Document 11/15/23 09:55 [facility] (Rec: 11/15/23 13:04 [facility] [id number]) Shoulder Goniometric Range of Motion Shoulder Right Active Flexion 151 Extension 69 Abduction 174 External Rotation at 90 degrees 76 Abduction External Rotation at 0 degrees Abduction 51 Internal Rotation Behind Back (text) T10 Comments mild discomfort at end range PT-OP-L Special Tests Start: 10/06/23 18:02 Freq: Status: Active Protocol: Document 10/13/23 11:26 [facility] (Rec: 10/13/23 13:05 [facility] [id number]) Special Tests Shoulder Special Tests Speed's Biceps Test Results neg R [place] Test Test Results positive R AC Joint Compression Test Results neg R [place] Test Results neg R Empty Can Comments positive R Neer Impingement Comments positive R [place] Adam Impingement Comments positive R PT-OP-M Strength Start: 10/06/23 18:02 Freq: Status: Active Protocol: Document 11/22/23 14:29 [facility] (Rec: 11/22/23 15:12 [facility] [id number]) Shoulder Strength Shoulder Manual Muscle Testing Right External Rotation 5 Normal Horizontal Adduction 5 Normal PT-OP-Q Treatments Start: 10/06/23 18:02 Freq: Status: Active Protocol: Document 11/22/23 14:29 [facility] (Rec: 11/22/23 15:11 [facility] [id number]) Therapeutic Exercises Standing Exercises Body blade Standing Exercise Name 1. flex at 90 2. flex 90 w/ Hadd 3. abd at 90 Side right Reps/Minutes 30 sec ea Comments sitting d/t hip high row Standing Exercise Name review Side bilateral Resistance level 3 [place] Reps/Minutes 15 x1 Comments Verbal, visual and tactile cues statue of liberty Standing Exercise Name Rhythmic oscillation Side bilateral Equipment Used yellow therabar Reps/Minutes 30 secx2 Comments good shoulder muscle tiring pec stretch Standing Exercise Name 90/90 Side right Reps/Minutes 60sec x1 Comments doorway Habd Standing Exercise Name w/flex Side bilateral Equipment Used L3 Reps/Minutes 15 ER Standing Exercise Name 90/90 (sitting today d/t pain in hip) Side right Resistance L3 Reps/Minutes 15 Comments cues elbow position IR Standing Exercise Name 90/90 (sitting today d/t pain in hip) Side right Resistance level 3 band Reps/Minutes 15 Comments cues elbow posiiton and scap Manual Therapy Treatment Consent Patient gave verbal consent for manual Yes treatment Soft Tissue Mobilization superior Body Location R UT, LS, scalenes Mobilization Type Rolling Intensity/Depth Moderate Body Position Supine pec Body Location R pec major/minor, biceps Mobilization Type Rolling,Sustained Pressure Intensity/Depth Moderate Body Position Hooklying Comments w/habd Joint Mobilizations AC Joint R ant clavicle FM; R scap post FM PT-OP-T Assessment and Plan Start: 10/06/23 18:02 Freq: Status: Active Protocol: Document 11/22/23 14:29 [facility] (Rec: 11/22/23 15:11 [facility] [id number]) Physical Therapy Assessment Goals activities Short Term Goal (STG) Pt will report ability to reach overhead w/o inc pain STG Duration achieved 10/26 Media Services Specialist Goal (LTG) Pt will be able to do all activities including throwing ball for dog w/o inc pain in R shoulder 11/14-soreness after LTG Duration achieved 11/21 strength Short Term Goal (STG) Pt will be indep w/HEP STG Duration achieved advancinga s able [facility] Goal (LTG) Pt will score at least 4+/5 on all RUE MMT and at least 4/5 EFT to show improved stability in order to do normal daily activities w/o inc pain. 10.26-much improved 11/14-much improved mild pain w / LTG Duration achieved w/MMT (EFT not tested d/t hip) ROM [facility] Goal (LTG) Pt will have full R shoulder AROM w/o inc pain to allow all typical activities w/o shoulder pain. 10/26-much improved 11/14-mild discomfort end range LTG Duration achieved 11/21 Assessment Summary Assessment Pt has met all goals and is DC at this time to work on HEP. Notes rarely feel R hsoulder and has returned to throwing ball with dog all activities. Physical Therapy Plan Frequency and Duration Frequency of Treatment 2x/Week Duration of treatment (weeks) 10 Plan of Care Start Date 10/13/23 Plan of Care End Date 12/22/23 Discharge Physical Therapy Discharge Reasons Goals Met
--- NOTE | 2023-11-22 15:12 | PT.OPDS ---
Current Diagnoses Impingement syndrome of right shoulder (11/22/23) Visit Care Team Role Provider Type Rafia Gu PA-C Family Provider Non-Staff Primary Care Provider Specialty: Medical Address: [address] [place] [address], [place], [address] Email: Keo Husain MD Attending Provider Non-Staff Referring Provider Specialty: Orthopedic Surgery Address: [address] [place] [address], [place], [address] Email: Visit Number Visit Number 11 Discharge Summary PT-OP-B Current Condition Start: 10/06/23 18:02 Freq: Status: Active Protocol: Document 10/13/23 11:26 [facility] (Rec: 10/13/23 13:05 [facility] [id number]) Current Condition History of Current Condition Onset Date 8 months ago Current Complaints R shoulder points to [place] region History of Current Condition Pt was coming out of and had dog's leash in hand and dog pulled hard and arm went across body fast and it hurt a lot. Still cannot throw ball for dog. pain w/overhead motions and throwing motions. Uses ice on it. Pt has a back problem and it is always there and as long as he is mindful, its okay. 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 Its a lot better since it happended but not getting any better. Hx of neck surgery also but denies pain Treatment Goals Patient/Caregiver Goals be able throw ball for dog, do overhead activities, be able to returnt o work out (wall push ups) PT-OP-C Subjective Start: 10/06/23 18:02 Freq: Status: Active Protocol: Document 11/22/23 14:29 [facility] (Rec: 11/22/23 15:11 [facility] [id number]) OP-PT Subjective Patient Comments Patient Comments Pt reports main cont issue w/ shoulder is Habd. set up for injection 12/08 for hip PT-OP-F Manual Assessment Start: 10/06/23 18:02 Freq: Status: Active Protocol: Document 10/13/23 11:26 [facility] (Rec: 10/13/23 13:05 [facility] [id number]) Manual Assessments Soft Tissue Assessment Soft Tissue Mobility Assessment tenderenss to biceps tendon, post scalene Joint Mobility Assessment Joint Mobility Assessment w/overhead motion elevation of scap PT-OP-J Posture/Palpation/Skin Start: 10/06/23 18:02 Freq: Status: Active Protocol: Document 10/13/23 11:26 [facility] (Rec: 10/13/23 13:05 [facility] [id number]) Posture Evaluation [facility] Postural Classification System Nyla Postural Classifications Posterior/Anterior Elbow Flexion Test 0 Comments Posture Comments R scap ant tipped, abd; humerus ant in glenoid R>L; R 1st rib elevated PT-OP-K Range of Motion Start: 10/06/23 18:02 Freq: Status: Active Protocol: Document 11/15/23 09:55 [facility] (Rec: 11/15/23 13:04 [facility] [id number]) Shoulder Goniometric Range of Motion Shoulder Right Active Flexion 151 Extension 69 Abduction 174 External Rotation at 90 degrees 76 Abduction External Rotation at 0 degrees Abduction 51 Internal Rotation Behind Back (text) T10 Comments mild discomfort at end range PT-OP-L Special Tests Start: 10/06/23 18:02 Freq: Status: Active Protocol: Document 10/13/23 11:26 [facility] (Rec: 10/13/23 13:05 [facility] [id number]) Special Tests Shoulder Special Tests Speed's Biceps Test Results neg R [place] Test Test Results positive R AC Joint Compression Test Results neg R [place] Test Results neg R Empty Can Comments positive R Neer Impingement Comments positive R [place] Impingement Comments positive R PT-OP-M Strength Start: 10/06/23 18:02 Freq: Status: Active Protocol: Document 11/22/23 14:29 [facility] (Rec: 11/22/23 15:12 [facility] [id number]) Shoulder Strength Shoulder Manual Muscle Testing Right External Rotation 5 Normal Horizontal Adduction 5 Normal PT-OP-T Assessment and Plan Start: 10/06/23 18:02 Freq: Status: Active Protocol: Document 11/22/23 14:29 [facility] (Rec: 11/22/23 15:11 [facility] [id number]) Physical Therapy Assessment Goals activities Short Term Goal (STG) Pt will report ability to reach overhead w/o inc pain STG Duration achieved 10/26 [employer] Goal (LTG) Pt will be able to do all activities including throwing ball for dog w/o inc pain in R shoulder 11/14-soreness after LTG Duration achieved 11/21 strength Short Term Goal (STG) Pt will be indep w/HEP STG Duration achieved advancinga s able Director Workers Compensation Goal (LTG) Pt will score at least 4+/5 on all RUE MMT and at least 4/5 EFT to show improved stability in order to do normal daily activities w/o inc pain. 10.26-much improved 11/14-much improved mild pain w / LTG Duration achieved w/MMT (EFT not tested d/t hip) ROM Director Workers Compensation Goal (LTG) Pt will have full R shoulder AROM w/o inc pain to allow all typical activities w/o shoulder pain. 10/26-much improved 11/14-mild discomfort end range LTG Duration achieved 11/21 Assessment Summary Assessment Pt has met all goals and is DC at this time to work on HEP. Notes rarely feel R hsoulder and has returned to throwing ball with dog all activities. Physical Therapy Plan Frequency and Duration Frequency of Treatment 2x/Week Duration of treatment (weeks) 10 Plan of Care Start Date 10/13/23 Plan of Care End Date 12/22/23 Discharge Physical Therapy Discharge Reasons Goals Met
== END 2023-11-29 08:29 | disposition home or self-care (01) ==
LOC: PHYS 14:30
PROVIDERS: Family Provider Physician Assistant; PCP Physician Assistant; Referring Provider Orthopaedic Surgery; Visit Provider Orthopaedic Surgery
DX: M75.41 Impingement syndrome of right shoulder (principal)
CPT/HCPCS: 97110; 97140; 97161; 97535

== ENCOUNTER → 2025-01-18 14:26 | Outpatient (CLI) | payer MEDICARE, OTHER, SELFPAY | PROVIDERS: Family Provider Physician Assistant; PCP Physician Assistant; Referring Provider Urology; Visit Provider Urology | DX: R39.9 Unspecified symptoms and signs involving the genitourinary system (principal) | CPT/HCPCS: 87086 ==